=== PATIENT | female | born 1950 | race Caucasian/White ===

== ENCOUNTER → 2017-02-08 | Outpatient (CLI) | payer OTHER ==
[~2017-02-08] MED LIST: ASPIRIN ADULT L81 M2 PO; ATORVASTATIN CA80 M1 PO; CLOPIDOGREL75 MG PO; GABAPENTIN400 MG PO; HUMALOG100 U/ML SC; HYDROXYZINE HCL25 M1 PO; INSULIN SYRING1 EAC1 MC; LEVEMIR FLEX100 U/ML SC; LEVEMIR10 ML SC; LISINOPRIL10 M1 PO; METFORMIN500 MG PO; METOPROLOL SUCC25 M2 PO; NEURONTIN300 MG PO; TEST STRIPS1 EACH MC; Vit. B650 MG PO; [UNRECOGNIZED DRUG - SUPPLY] MC
[2017-02-08 12:25] LABS: BASO % 0.4 % (0.0-1.0); EOS # 0.1 10*3/uL (0.0-0.4); EOS % 0.7 % (1.0-4.0); HEMATOCRIT 40.9 % (37.0-47.0); LYMPH # 2.5 10*3/uL (1.3-4.4); LYMPH % 36.5 % (27.0-41.0); MEAN CELL VOLUME 90.1 fl (81.0-99.0); MEAN CORPUSCULAR HGB 30.8 pg (27.0-31.0); MEAN CORPUSCULAR HGB CONC 34.2 g/dl (33.0-37.0); MEAN PLATELET VOLUME 10.8 fl (9.6-12.3); MONO # 0.4 10*3/uL (0.1-1.0); MONO % 5.5 % (3.0-9.0); NEUT # 3.9 10*3/uL (2.3-7.9); NEUT % 56.5 % (47.0-73.0); PLATELET COUNT AUTOMATED 173 10*3/uL (130-400); RED BLOOD COUNT 4.54 10*6/uL (4.10-5.10); RED CELL DISTRI WIDTH 12.6 % (0-14.5); WHITE BLOOD COUNT 6.9 10*3/uL (4.8-10.8)
[2017-02-08 12:42] LABS: ALBUMIN 3.5 gm/dl (3.1-4.5); BUN 11 mg/dl (7-24); CARBON DIOXIDE 26 mmol/L (21-32); CHLORIDE 100 mmol/L (98-107); CHOLESTEROL 195 mg/dL (<200); EST GLOM FILT AFRICAN AMERICAN > 60 ml/min; GLUCOSE 264 mg/dL (65-99); POTASSIUM 4.8 mmol/L (3.5-5.1); SGOT/AST 23 IU/L (3-35); SGPT/ALT 29 U/L (12-78); SODIUM 138 mmol/L (136-145); TRIGLYCERIDES 248 mg/dl (<150); VLDL CHOLESTEROL 50 mg/dL (6-40)
[2017-02-08 12:52] LABS: ALKALINE PHOSPHATASE 113 U/L (45-117); BILIRUBIN, TOTAL 0.5 mg/dl (0.2-1.0); HDL CHOLESTEROL 59 mg/dl (40-60); LDL CHOLESTEROL 86 mg/dL (9-159); TOTAL PROTEIN 7.4 gm/dL (6.4-8.2)
[2017-02-08 13:16] LABS: VITAMIN D, 25-HYDROXY 7.1 ng/mL (30-100)
[2017-02-08 14:32] LABS: HEMOGLOBIN A1c 9.1 % (4.8-5.6)
== END | disposition home or self-care (01) ==
LOC: LAB 11:49
PROVIDERS: Family Medicine
DX: E11.65 Type 2 diabetes mellitus with hyperglycemia (principal); F41.9 Anxiety disorder, unspecified; I10 Essential (primary) hypertension; E55.9 Vitamin D deficiency, unspecified; E11.42 Type 2 diabetes mellitus with diabetic polyneuropathy; R53.82 Chronic fatigue, unspecified; E78.5 Hyperlipidemia, unspecified

== ENCOUNTER → 2017-02-13 | Outpatient (CLI) | payer OTHER | END | disposition home or self-care (01) | LOC: US 12:30 | DX: E11.9 Type 2 diabetes mellitus without complications (principal); I10 Essential (primary) hypertension; I73.9 Peripheral vascular disease, unspecified; R20.0 Anesthesia of skin; I70.202 Unspecified atherosclerosis of native arteries of extremities, left leg ==

== ENCOUNTER → 2017-03-23 | Outpatient (CLI) | payer OTHER | END | disposition home or self-care (01) | LOC: US 02-24 13:00 | DX: I65.23 Occlusion and stenosis of bilateral carotid arteries (principal) ==

== ENCOUNTER → 2017-08-30 | Outpatient (CLI) | payer OTHER ==
[2017-08-30 09:38] LABS: BASO % 0.4 % (0.0-1.0); EOS # 0.1 10*3/uL (0.0-0.4); EOS % 0.6 % (1.0-4.0); HEMOGLOBIN 13.8 g/dl (12.0-16.0); LYMPH # 2.5 10*3/uL (1.3-4.4); LYMPH % 31.2 % (27.0-41.0); MEAN CELL VOLUME 88.4 fl (81.0-99.0); MEAN CORPUSCULAR HGB 29.7 pg (27.0-31.0); MEAN CORPUSCULAR HGB CONC 33.7 g/dl (33.0-37.0); MEAN PLATELET VOLUME 10.5 fl (9.6-12.3); MONO # 0.5 10*3/uL (0.1-1.0); MONO % 6.2 % (3.0-9.0); NEUT # 4.8 10*3/uL (2.3-7.9); NEUT % 61.1 % (47.0-73.0); PLATELET COUNT AUTOMATED 175 10*3/uL (130-400); RED BLOOD COUNT 4.64 10*6/uL (4.10-5.10); RED CELL DISTRI WIDTH 12.3 % (0-14.5); WHITE BLOOD COUNT 7.9 10*3/uL (4.8-10.8)
[2017-08-30 09:48] LABS: ALBUMIN 3.4 gm/dl (3.1-4.5); ALKALINE PHOSPHATASE 122 U/L (45-117); BUN 10 mg/dl (7-24); CHLORIDE 98 mmol/L (98-107); CREATININE 0.81 mg/dL (0.55-1.02); POTASSIUM 4.6 mmol/L (3.5-5.1); SGOT/AST 24 IU/L (3-35); SGPT/ALT 28 U/L (12-78); SODIUM 134 mmol/L (136-145); TOTAL PROTEIN 7.9 gm/dL (6.4-8.2)
== END | disposition home or self-care (01) ==
LOC: LAB 03:56 → MRI 09:00 → LAB 09:00 → MRI 10:00
PROVIDERS: Internal Medicine Cardiovascular Disease
DX: I67.82 Cerebral ischemia (principal); I25.10 Atherosclerotic heart disease of native coronary artery without angina pectoris; G45.3 Amaurosis fugax; R29.898 Other symptoms and signs involving the musculoskeletal system; R73.09 Other abnormal glucose

== ENCOUNTER 2018-02-13 18:03 | Inpatient (IN) | payer OTHER ==
[~2018-02-13] VITALS: Ht 157.4 cm; Wt 76.2 kg
--- NOTE | ~2018-02-13 | CON ---
[place], [place] REPORT OF CONSULTATION NAME: AGNIESZKA JERRY UNIT #: [id number] ROOM: 507 DOCTOR: JESSICA CORRALES MD BIRTHDATE: [birth year] DOS: 02/16/2018 PSYCHIATRIC CONSULTATION NOTE CHIEF COMPLAINT: "Yeah, I guess I have been depressed for some time." HISTORY OF PRESENT ILLNESS: This is a 67-year-old white female admitted to the medical floor at [facility] due to generalized weakness. The patient recently had a carotid enterectomy done at [facility] on 02/07/2018. Since that time, the patient has been reportedly feeling very tired and weak and lethargic. From a psychiatric standpoint, the patient does endorse significant depressive symptomatology. She reports that she has battled depression on and off throughout her life. Most recently, she notes that the symptoms of depression have worsened in the last 4 to 6 weeks, some of this is because she fears that she is going to have a stroke or have a heart attack. She endorses significant neurovegetative symptoms that include poor sleep with difficulty falling asleep, sleep continuity disturbance, aircraft engine mechanic awakening, anergia, anhedonia, hopeless, helpless feelings, crying spells, inability to cope. Her appetite until just recently has been very poor as well. She reports that her current antidepressant is ineffective at combating these symptoms and is open to having a change in her medication. She does not endorse any suicidal thoughts, homicidal thoughts or any self-injurious thoughts and in fact is looking forward to returning home to be with her Shobha that is the love of her life. PAST MEDICAL HISTORY: Remarkable for congestive heart failure, Crohn's disease, coronary artery disease, diabetes, history of a myocardial infarction, hypertension, hyperlipidemia and neuropathic pain. MENTAL STATUS: She is alert and oriented to person, place and time. Mood does seem to be depressed with anxious overtones. There is no significant kelsie, hypomania or psychosis. Memory for the most part is fully intact. DIAGNOSIS: Major depression, recurrent. PLAN: I will go ahead and discontinue her Celexa, instead I will start her on Remeron 15 mg at bedtime. She should have outpatient followup post-discharge. JESSICA CORRALES MD CM:CONSTR:REPORT OF CONSULTATION 02/16/18 0945 interface
--- NOTE | ~2018-02-13 | PROC NOTE ---
[place], [place] PROCEDURE NOTE NAME: AGNIESZKA JERRY UNIT #: [id number] ROOM: 507 DOCTOR: AMINTA COX BIRTHDATE: [birth year] DOS: 02/14/2018 MODIFIED BARIUM SWALLOW LOCATION: [facility], room 507, bed 1. ORDERING PHYSICIAN: Cinthia Herrera DO. RADIOLOGIST: Dr. Bah. BACKGROUND INFORMATION: The patient a 67-year-old female who is seen for modified barium swallow. This test was ordered due to dysphagia. The patient was admitted to the hospital with generalized weakness. She reported undergoing a right carotid endarterectomy at [facility] last week and since that time has been increasingly weak, unable to care for herself and with poor intake. The patient did confirm weight loss of about 10 pounds recently. She also reported coughing and choking when swallowing, but stated this has been occurring for the past couple of years. Further medical history includes DM, PA, GERD, stents times 2, Crohn's disease, CAD and CHF. The patient currently receives a regular diet and thin liquids. For today's assessment, she was alert and fatigued, but able to follow commands. The patient was receiving oxygen via nasal cannula. Congested respirations were noted. Oral peripheral examination revealed edentulous status. Lingual and labial skills were within normal limits in terms of strength, range of motion, and coordination. The patient was able to volitionally swallow. Her volitional cough was weak. METHODS AND MATERIALS USED FOR THE EXAM: The patient was positioned in the lateral plane and the exam was viewed under fluoroscopy. The patient was presented with a variety of consistencies to assess swallowing skills including applesauce mixed with barium presented in half teaspoon amounts, barium-coated pears and cookie given in bite size pieces and liquids, which included thin liquid barium, nectar thick barium and honey-thick barium. Liquids were presented by cup. The patient was observed in neutral head position and in a chin tuck maneuver. The patient was given the cup and instructed to swallow in her normal sip size amount which was noted to be large sips. ORAL PHASE: The patient achieved adequate labial seal around cup and spoon with no anterior loss. Bolus formation and transit were adequate. Piecemeal swallow of solid consistencies was observed. Tongue to palate contact was within normal limits. Tongue retraction was within normal limits. Velar functioning was within normal limits with no nasal regurgitation. PHARYNGEAL PHASE: The pharyngeal swallow occurred within a timely manner. Laryngeal elevation and epiglottic function were reduced. Deep penetration occurred with thin liquid, nectar thick barium and honey-thick barium. There was no residue in the pharynx post-swallow. The patient was cued to use chin tuck with thin and thick liquids, continued penetration was observed. When patient was cued to take a small sip of honey-thick barium and tuck her chin, there was no penetration occurring. No aspiration occurred with any consistency given; however, the patient is at high risk. [place], [place] PROCEDURE NOTE NAME: AGNIESZKA JERRY UNIT #: [id number] ROOM: 7 DOCTOR: AMINTA COX BIRTHDATE: [birth year] ESOPHAGEAL PHASE: This phase of the swallow was not formally assessed during this exam. IMPRESSIONS AND RECOMMENDATIONS: Based upon assessment result, this 67-year-old female presents with a mild oral and moderate pharyngeal dysphagia. Piecemeal swallow was noted with soft solids. Deep penetration occurred with liquids due to reduced laryngeal elevation and epiglottic function. No aspiration was displayed with any consistency, but patient displays a high risk. There was no penetration when patient consumed honey thick liquid in small sip using chin tuck maneuver. It is recommended that patient receive a soft diet and honey-thick liquids. Recommend small bites and sips, eating slowly and chin tuck with liquids. Followup therapy is recommended focusing on strengthening exercises adherence to strategies and education. Results and recommendations were shared with the patient and her nurse and they verbalized understanding. Thank you very much for this referral. Should you have any questions regarding this patient, please contact the speech pathologist at [phone]. AMINTA COX CM:PROCNOTE:PROCEDURE NOTE [id number] AMINTA COX
[2018-02-13 18:21] VITALS: BP 72/34
[2018-02-13 19:30] VITALS: BP 108/41
[2018-02-13 19:47] VITALS: BP 114/32
[2018-02-13 20:13] LABS: ACT PARTIAL THROMBO TIME 21.8 SECONDS (20.8-31.5); INTERNATIONAL NORM RATIO 1.1 (2.0-3.5)
[2018-02-13 20:17] LABS: ALBUMIN 2.5 gm/dl (3.1-4.5); ALKALINE PHOSPHATASE 90 U/L (45-117); BUN 20 mg/dl (7-24); CHLORIDE 104 mmol/L (98-107); CREATININE 0.83 mg/dL (0.55-1.02); LIPASE 138 U/L (73-393); SGOT/AST 27 IU/L (3-35); SGPT/ALT 18 U/L (12-78); SODIUM 136 mmol/L (136-145); TOTAL PROTEIN 6.3 gm/dL (6.4-8.2)
[2018-02-13 20:18] LABS: TROPONIN I < 0.015 ng/ml (<0.045)
[2018-02-13 21:30] VITALS: BP 107/53
[2018-02-13 21:34] LABS: BASO % 0.2 % (0.0-1.0); EOS # 0.1 10*3/uL (0.0-0.4); HEMATOCRIT 36.7 % (37.0-47.0); HEMOGLOBIN 12.3 g/dl (12.0-16.0); LYMPH # 2.8 10*3/uL (1.3-4.4); LYMPH % 27.2 % (27.0-41.0); MEAN CELL VOLUME 90.2 fl (81.0-99.0); MEAN CORPUSCULAR HGB 30.2 pg (27.0-31.0); MEAN CORPUSCULAR HGB CONC 33.5 g/dl (33.0-37.0); MEAN PLATELET VOLUME 9.7 fl (9.6-12.3); MONO # 1.1 10*3/uL (0.1-1.0); MONO % 10.9 % (3.0-9.0); NEUT # 6.3 10*3/uL (2.3-7.9); NEUT % 59.7 % (47.0-73.0); PLATELET COUNT AUTOMATED 162 10*3/uL (130-400); RED BLOOD COUNT 4.07 10*6/uL (4.10-5.10); RED CELL DISTRI WIDTH 12.6 % (0-14.5); WHITE BLOOD COUNT 10.5 10*3/uL (4.8-10.8)
[2018-02-13 23:30] VITALS: BP 127/46
[2018-02-14] VITALS: BP 127/46
[2018-02-14 03:43] LABS: BILIRUBIN NEGATIVE (NEGATIVE); BLOOD NEGATIVE (NEGATIVE); CLARITY CLEAR (CLEAR); COLOR YELLOW (YELLOW); GLUCOSE NEGATIVE (NEGATIVE); KETONE NEGATIVE (NEGATIVE); LEUKO ESTERASE TRACE (NEGATIVE); NITRITE NEGATIVE (NEGATIVE); PH 5.5 (5.0-9.0); SPECIFIC GRAVITY 1.025 (1.005-1.030); UROBILINOGEN 0.2 E.U./dl (0.2-1.0)
[2018-02-14 03:50] LABS: BACTERIA TRACE
[2018-02-14 04:00] VITALS: BP 109/56
[2018-02-14 07:22] LABS: BASO % 0.2 % (0.0-1.0); EOS # 0.1 10*3/uL (0.0-0.4); EOS % 1.1 % (1.0-4.0); HEMATOCRIT 37.8 % (37.0-47.0); HEMOGLOBIN 12.3 g/dl (12.0-16.0); LYMPH # 2.1 10*3/uL (1.3-4.4); LYMPH % 25.2 % (27.0-41.0); MEAN CELL VOLUME 90.9 fl (81.0-99.0); MEAN CORPUSCULAR HGB 29.6 pg (27.0-31.0); MEAN CORPUSCULAR HGB CONC 32.5 g/dl (33.0-37.0); MEAN PLATELET VOLUME 9.9 fl (9.6-12.3); MONO # 0.9 10*3/uL (0.1-1.0); MONO % 10.2 % (3.0-9.0); NEUT # 5.2 10*3/uL (2.3-7.9); NEUT % 62.1 % (47.0-73.0); PLATELET COUNT AUTOMATED 176 10*3/uL (130-400); RED BLOOD COUNT 4.16 10*6/uL (4.10-5.10); RED CELL DISTRI WIDTH 12.5 % (0-14.5); WHITE BLOOD COUNT 8.3 10*3/uL (4.8-10.8)
[2018-02-14 08:00] VITALS: BP 130/47
[2018-02-14 08:50] LABS: BUN 14 mg/dl (7-24); CHLORIDE 102 mmol/L (98-107); CREATININE 0.71 mg/dL (0.55-1.02); SODIUM 136 mmol/L (136-145)
[2018-02-14 08:55] LABS: CHOLESTEROL 82 mg/dL (<200); HDL CHOLESTEROL 39 mg/dl (40-60); LDL CHOLESTEROL 19 mg/dL (9-159); PHOSPHOROUS 2.4 mg/dL (2.5-4.9); TRIGLYCERIDES 118 mg/dl (<150); VLDL CHOLESTEROL 24 mg/dL (6-40)
[2018-02-14 09:05] LABS: VITAMIN D, 25-HYDROXY 15.4 ng/mL (30-100)
[2018-02-14] MEDS ORDERED: CELEXA20 MG PO (11:09)
[2018-02-14] MEDS ORDERED: GOOD NEIGHBOR150 MG PO (11:11)
[2018-02-14] MEDS ORDERED: ZOFRAN4 MG PO (11:11)
[2018-02-14] MEDS ORDERED: JANUVIA100 MG PO (11:12)
[2018-02-14 12:00] VITALS: BP 154/55
[2018-02-14 16:00] VITALS: BP 148/70
[2018-02-14 20:00] VITALS: BP 156/56
[2018-02-15] VITALS: BP 111/89
[2018-02-15 06:32] LABS: BASO % 0.1 % (0.0-1.0); HEMATOCRIT 32.5 % (37.0-47.0); LYMPH # 0.7 10*3/uL (1.3-4.4); LYMPH % 8.6 % (27.0-41.0); MEAN CELL VOLUME 88.8 fl (81.0-99.0); MEAN CORPUSCULAR HGB 30.1 pg (27.0-31.0); MEAN CORPUSCULAR HGB CONC 33.8 g/dl (33.0-37.0); MEAN PLATELET VOLUME 10.1 fl (9.6-12.3); MONO # 0.4 10*3/uL (0.1-1.0); MONO % 4.5 % (3.0-9.0); NEUT # 6.7 10*3/uL (2.3-7.9); PLATELET COUNT AUTOMATED 173 10*3/uL (130-400); RED BLOOD COUNT 3.66 10*6/uL (4.10-5.10); RED CELL DISTRI WIDTH 12.3 % (0-14.5); WHITE BLOOD COUNT 7.9 10*3/uL (4.8-10.8)
[2018-02-15 08:00] VITALS: BP 128/90
[2018-02-15] MEDS ORDERED: NEURONTIN600 MG PO (08:19)
[2018-02-15 12:00] VITALS: BP 138/46
[2018-02-15 16:00] VITALS: BP 133/50
[2018-02-15 20:00] VITALS: BP 139/52
[2018-02-16] VITALS: BP 135/43
[2018-02-16 08:00] VITALS: BP 146/61
[2018-02-16 12:00] VITALS: BP 157/64
[2018-02-16] MEDS ORDERED: VITAMIN D5000 UNI1 PO (13:37)
[2018-02-16] MEDS ORDERED: MIRTAZAPINE15 M2 PO (13:37)
== END 2018-02-16 14:40 | disposition home or self-care (01) | DRG 177 ==
LOC: ED 18:03 → EDHOLD 22:11 → 5E 22:11
PROVIDERS: Internal Medicine; Internal Medicine Nephrology; Nurse Practitioner Family
PROC: BD11YZZ Fluoroscopy of Esophagus using Other Contrast (ICD-10-PCS; principal; 2018-02-14)
DX: J69.0 Pneumonitis due to inhalation of food and vomit (principal); E43 Unspecified severe protein-calorie malnutrition; I95.9 Hypotension, unspecified; E11.42 Type 2 diabetes mellitus with diabetic polyneuropathy; I11.0 Hypertensive heart disease with heart failure; I50.42 Chronic combined systolic (congestive) and diastolic (congestive) heart failure; E83.42 Hypomagnesemia; E83.39 Other disorders of phosphorus metabolism; K50.119 Crohn's disease of large intestine with unspecified complications; F33.9 Major depressive disorder, recurrent, unspecified; J98.11 Atelectasis; Z68.29 Body mass index [BMI] 29.0-29.9, adult; M79.2 Neuralgia and neuritis, unspecified; E78.5 Hyperlipidemia, unspecified; I25.10 Atherosclerotic heart disease of native coronary artery without angina pectoris; R13.12 Dysphagia, oropharyngeal phase; Z71.6 Tobacco abuse counseling; Z72.0 Tobacco use; Z79.4 Long term (current) use of insulin; I25.2 Old myocardial infarction; Z95.5 Presence of coronary angioplasty implant and graft; Z90.710 Acquired absence of both cervix and uterus; Z79.899 Other long term (current) drug therapy; Z83.3 Family history of diabetes mellitus; Z83.79 Family history of other diseases of the digestive system; Z79.82 Long term (current) use of aspirin; Z82.49 Family history of ischemic heart disease and other diseases of the circulatory system; Z80.9 Family history of malignant neoplasm, unspecified; Z87.440 Personal history of urinary (tract) infections

== ENCOUNTER → 2018-07-31 | Outpatient (CLI) | payer OTHER ==
[~2018-07-31] MED LIST changes: +CELEXA20 MG PO; +CIPRO500 MG PO; +FUROSEMIDE20 M1 PO; +GLUCOPHAGE1000 MG PO; +GOOD NEIGHBOR150 MG PO; -HYDROXYZINE HCL25 M1 PO; +HYDROXYZINE HCL25 MG PO; +JANUVIA100 MG PO; +MIRTAZAPINE15 M2 PO; +NEURONTIN600 MG PO; +PROTONIX40 M1 PO; +VITAMIN D5000 UNI1 PO; +ZOFRAN4 MG PO
== END | disposition home or self-care (01) ==
LOC: RAD 13:48
DX: J45.909 Unspecified asthma, uncomplicated (principal); I10 Essential (primary) hypertension; I25.10 Atherosclerotic heart disease of native coronary artery without angina pectoris; E11.9 Type 2 diabetes mellitus without complications; I25.2 Old myocardial infarction; F17.200 Nicotine dependence, unspecified, uncomplicated

== ENCOUNTER 2018-09-03 18:18 | Inpatient (IN) | payer OTHER ==
[~2018-09-03] VITALS: Ht 157.5 cm; Wt 81.8 kg
--- NOTE | ~2018-09-03 | EKG ---
[place], [place] ELECTROCARDIOGRAM REPORT NAME: AGNIESZKA JERRY UNIT #: [id number] ROOM: 404 DOCTOR: EPIPHANY DRAFT REPORT BIRTHDATE: [birth year] [facility] Test Date: 2018-09-03 Test Time: 19:46:42 Pat Name: AGNIESZKA JERRY Department: ER Room: 404 Gender: F Process Operator: Bozena Gruber : 1950 Requested By: VIVIAN STEPHEN Order Number: [id number] Reading MD: Isauro Lo MD Measurements Intervals [place] Rate: 80 P: 28 ME: 176 QRS: 16 QRSD: 102 T: 163 QT: 404 QTc: 466 Interpretive Statements Sinus rhythm Nonspecific repol abnormality, lateral leads Poor precordial R-wave progression Electronically Signed On 09-06-2018 16:33:22 PST by Isauro Lo MD CM:EKGRPT:ELECTROCARDIOGRAM REPORT [id number] VIVIAN STEPHEN EPIPHANY DRAFT REPORT VIVIAN STEPHEN
[~2018-09-03 18:18] MED LIST changes: -CIPRO500 MG PO; -FUROSEMIDE20 M1 PO; -GLUCOPHAGE1000 MG PO; -PROTONIX40 M1 PO
[2018-09-03 18:20] VITALS: BP 94/36
[2018-09-03 19:09] VITALS: BP 92/44
[2018-09-03 19:53] LABS: BILIRUBIN NEGATIVE (NEGATIVE); BLOOD NEGATIVE (NEGATIVE); CLARITY SL CLOUDY (CLEAR); COLOR YELLOW (YELLOW); GLUCOSE NEGATIVE (NEGATIVE); KETONE TRACE (NEGATIVE); LEUKO ESTERASE TRACE (NEGATIVE); NITRITE NEGATIVE (NEGATIVE); PH 5.5 (5.0-9.0); SPECIFIC GRAVITY 1.025 (1.005-1.030); UROBILINOGEN 0.2 E.U./dl (0.2-1.0)
[2018-09-03 20:08] LABS: MUCOUS TRACE
[2018-09-03 20:25] LABS: BASO % 0.2 % (0.0-1.0); EOS # 0.1 10*3/uL (0.0-0.4); EOS % 0.8 % (1.0-4.0); HEMATOCRIT 35.2 % (37.0-47.0); HEMOGLOBIN 11.5 g/dl (12.0-16.0); LYMPH # 2.6 10*3/uL (1.3-4.4); LYMPH % 27.7 % (27.0-41.0); MEAN CELL VOLUME 89.8 fl (81.0-99.0); MEAN CORPUSCULAR HGB 29.3 pg (27.0-31.0); MEAN CORPUSCULAR HGB CONC 32.7 g/dl (33.0-37.0); MEAN PLATELET VOLUME 9.9 fl (9.6-12.3); MONO # 0.7 10*3/uL (0.1-1.0); MONO % 7.3 % (3.0-9.0); NEUT % 63.7 % (47.0-73.0); PLATELET COUNT AUTOMATED 190 10*3/uL (130-400); RED BLOOD COUNT 3.92 10*6/uL (4.10-5.10); RED CELL DISTRI WIDTH 14.3 % (0-14.5); WHITE BLOOD COUNT 9.5 10*3/uL (4.8-10.8)
[2018-09-03 20:36] LABS: ACT PARTIAL THROMBO TIME 20.5 SECONDS (20.8-31.5); INTERNATIONAL NORM RATIO 1.1 (2.0-3.5)
[2018-09-03 20:41] LABS: ALBUMIN 3.1 gm/dl (3.1-4.5); ALKALINE PHOSPHATASE 100 U/L (45-117); BUN 20 mg/dl (7-24); CHLORIDE 102 mmol/L (98-107); CREATININE 2.32 mg/dL (0.55-1.02); LIPASE 183 U/L (73-393); SGOT/AST 26 IU/L (3-35); SGPT/ALT 23 U/L (12-78); SODIUM 138 mmol/L (136-145); TOTAL PROTEIN 7.3 gm/dL (6.4-8.2)
[2018-09-03 20:42] LABS: TROPONIN I < 0.015 ng/ml (<0.045)
[2018-09-03 21:14] VITALS: BP 102/33
[2018-09-03 23:19] VITALS: BP 106/30
[2018-09-04 00:13] VITALS: BP 123/42
[2018-09-04 00:30] VITALS: BP 130/50
[2018-09-04] MEDS ORDERED: GLUCOPHAGE1000 MG PO (00:42)
[2018-09-04] MEDS ORDERED: MIRTAZAPINE15 M2 PO (00:43)
[2018-09-04] MEDS ORDERED: FUROSEMIDE20 M1 PO (00:47)
[2018-09-04] MEDS ORDERED: PROTONIX40 M1 PO (00:48)
[2018-09-04] MEDS ORDERED: JANUVIA100 MG PO (00:48)
[2018-09-04 03:43] LABS: BASO % 0.2 % (0.0-1.0); EOS # 0.2 10*3/uL (0.0-0.4); EOS % 1.9 % (1.0-4.0); HEMATOCRIT 32.8 % (37.0-47.0); HEMOGLOBIN 10.5 g/dl (12.0-16.0); LYMPH # 2.8 10*3/uL (1.3-4.4); LYMPH % 32.2 % (27.0-41.0); MEAN CELL VOLUME 90.9 fl (81.0-99.0); MEAN CORPUSCULAR HGB 29.1 pg (27.0-31.0); MEAN PLATELET VOLUME 9.9 fl (9.6-12.3); MONO # 0.8 10*3/uL (0.1-1.0); MONO % 9.6 % (3.0-9.0); NEUT # 4.8 10*3/uL (2.3-7.9); NEUT % 55.9 % (47.0-73.0); PLATELET COUNT AUTOMATED 177 10*3/uL (130-400); RED BLOOD COUNT 3.61 10*6/uL (4.10-5.10); RED CELL DISTRI WIDTH 14.2 % (0-14.5); WHITE BLOOD COUNT 8.6 10*3/uL (4.8-10.8)
[2018-09-04 03:54] LABS: CREATININE 2.19 mg/dL (0.55-1.02); POTASSIUM 3.5 mmol/L (3.5-5.1)
[2018-09-04 03:55] LABS: PHOSPHOROUS 3.8 mg/dL (2.5-4.9)
[2018-09-04 08:00] VITALS: BP 104/58
[2018-09-04 12:00] VITALS: BP 126/42
[2018-09-04 16:00] VITALS: BP 118/68
[2018-09-04 20:00] VITALS: BP 126/73
[2018-09-05] VITALS: BP 122/53
[2018-09-05 06:45] LABS: BASO % 0.2 % (0.0-1.0); EOS # 0.1 10*3/uL (0.0-0.4); EOS % 1.7 % (1.0-4.0); HEMATOCRIT 30.5 % (37.0-47.0); HEMOGLOBIN 9.9 g/dl (12.0-16.0); LYMPH # 2.3 10*3/uL (1.3-4.4); LYMPH % 38.2 % (27.0-41.0); MEAN CELL VOLUME 89.2 fl (81.0-99.0); MEAN CORPUSCULAR HGB 28.9 pg (27.0-31.0); MEAN CORPUSCULAR HGB CONC 32.5 g/dl (33.0-37.0); MONO # 0.6 10*3/uL (0.1-1.0); MONO % 10.4 % (3.0-9.0); NEUT % 49.2 % (47.0-73.0); PLATELET COUNT AUTOMATED 150 10*3/uL (130-400); RED BLOOD COUNT 3.42 10*6/uL (4.10-5.10); RED CELL DISTRI WIDTH 13.8 % (0-14.5)
[2018-09-05 07:19] LABS: CHLORIDE 105 mmol/L (98-107); POTASSIUM 3.9 mmol/L (3.5-5.1); SODIUM 139 mmol/L (136-145)
[2018-09-05 07:41] LABS: BUN 19 mg/dl (7-24); CREATININE 1.08 mg/dL (0.55-1.02)
[2018-09-05 08:00] VITALS: BP 122/50
[2018-09-05 12:00] VITALS: BP 151/53
[2018-09-05 16:00] VITALS: BP 160/67
[2018-09-05 20:00] VITALS: BP 137/50
[2018-09-06] VITALS: BP 146/53
[2018-09-06 07:27] LABS: BUN 18 mg/dl (7-24); CHLORIDE 105 mmol/L (98-107); POTASSIUM 4.6 mmol/L (3.5-5.1); SODIUM 137 mmol/L (136-145)
[2018-09-06 08:00] VITALS: BP 135/51
== END 2018-09-06 13:22 | disposition home health service (06) | DRG 683 ==
LOC: ED 18:18 → 4E 23:51 → EDHOLD 23:51 → 4E 09-04 00:14
PROVIDERS: Internal Medicine; Nurse Practitioner Family; Student in an Organized Health Care Education/Training Program
DX: N17.0 Acute kidney failure with tubular necrosis (principal); E87.2 Acidosis; E44.0 Moderate protein-calorie malnutrition; K50.119 Crohn's disease of large intestine with unspecified complications; I50.42 Chronic combined systolic (congestive) and diastolic (congestive) heart failure; N39.0 Urinary tract infection, site not specified; I95.89 Other hypotension; E86.1 Hypovolemia; D64.9 Anemia, unspecified; B37.2 Candidiasis of skin and nail; F32.9 Major depressive disorder, single episode, unspecified; F17.210 Nicotine dependence, cigarettes, uncomplicated; E78.1 Pure hyperglyceridemia; E11.65 Type 2 diabetes mellitus with hyperglycemia; E11.41 Type 2 diabetes mellitus with diabetic mononeuropathy; I11.0 Hypertensive heart disease with heart failure; I25.10 Atherosclerotic heart disease of native coronary artery without angina pectoris; I34.0 Nonrheumatic mitral (valve) insufficiency; E04.1 Nontoxic single thyroid nodule; E66.9 Obesity, unspecified; Z53.29 Procedure and treatment not carried out because of patient's decision for other reasons; I25.2 Old myocardial infarction; Z79.4 Long term (current) use of insulin; Z95.5 Presence of coronary angioplasty implant and graft; Z90.710 Acquired absence of both cervix and uterus; Z83.3 Family history of diabetes mellitus; Z80.8 Family history of malignant neoplasm of other organs or systems; Z71.6 Tobacco abuse counseling; Z87.01 Personal history of pneumonia (recurrent); Z79.82 Long term (current) use of aspirin; Z79.84 Long term (current) use of oral hypoglycemic drugs; Z79.899 Other long term (current) drug therapy; Z68.33 Body mass index [BMI] 33.0-33.9, adult

== ENCOUNTER 2019-04-18 16:29 | Inpatient (IN) | payer OTHER ==
[~2019-04-18] VITALS: Ht 157.5 cm; Wt 88.7 kg
--- NOTE | ~2019-04-18 | EKG ---
[place], [place] ELECTROCARDIOGRAM REPORT NAME: AGNIESZKA JERRY UNIT #: [id number] ROOM: [facility] DOCTOR: HEMAL DRAFT REPORT BIRTHDATE: [birth year] [facility] Test Date: 2019-04-27 Test Time: 00:47:57 Pat Name: AGNIESZKA JERRY Department: Room: [facility] Gender: F Human Resources Specialist: Felix Han : 1950 Requested By: NELSY DOMINGUEZ Order Number: [id number] Reading MD: Sue Cabrera MD Measurements Intervals [place] Rate: 69 P: 35 MO: 188 QRS: 10 QRSD: 112 T: 142 QT: 391 QTc: 419 Interpretive Statements Sinus rhythm Incomplete left bundle branch block LVH with secondary repolarization abnormality Inferior infarct, old Compared to ECG 03/27/2019 05:38:42 Left bundle-branch block now present Atrial fibrillation no longer present Right bundle-branch block no longer present Myocardial infarct finding still present Electronically Signed On 04-28-2019 11:40:56 PDT by Sue Cabrera MD CM:EKGRPT:ELECTROCARDIOGRAM REPORT [id number] NELSY RECIO DRAFT REPORT NELSY DOMINGUEZ
--- NOTE | ~2019-04-18 | EKG ---
[place], [place] ELECTROCARDIOGRAM REPORT NAME: AGNIESZKA JERRY UNIT #: [id number] ROOM: [facility] DOCTOR: HEMAL DRAFT REPORT BIRTHDATE: [birth year] [facility] Test Date: 2019-04-26 Test Time: 23:25:00 Pat Name: AGNIESZKA JERRY Department: Room: [facility] Gender: F Sweatband Flanger: Felix Han : 1950 Requested By: NELSY DOMINGUEZ Order Number: [id number] Reading MD: Sue Cabrera MD Measurements Intervals [place] Rate: 67 P: 35 WI: 188 QRS: 7 QRSD: 108 T: 145 QT: 391 QTc: 413 Interpretive Statements Sinus rhythm Incomplete left bundle branch block LVH with secondary repolarization abnormality Inferior infarct, old Compared to ECG 03/27/2019 05:38:42 Left bundle-branch block now present Atrial fibrillation no longer present Right bundle-branch block no longer present Myocardial infarct finding still present Electronically Signed On 04-28-2019 11:40:53 PDT by Sue Cabrera MD CM:EKGRPT:ELECTROCARDIOGRAM REPORT [id number] NELSY RECIO DRAFT REPORT NELSY DOMINGUEZ
[~2019-04-18 16:29] MED LIST changes: +CIPRO500 MG PO; +FUROSEMIDE20 M1 PO; +GLUCOPHAGE1000 MG PO; +PROTONIX40 M1 PO
[2019-04-18 16:30] VITALS: BP 171/51
--- NOTE | 2019-04-18 16:51 | NUR ---
PATIENT HAS OPEN AREA OF SKIN IN SKIN FOLD OF R THIGH AREA BETWEEN THIGH AND ABDOMEN. PATIENT DENIES WANTING PICTURES AT THIS TIME. EMOTIONAL AT THIS TIME.
--- NOTE | 2019-04-18 16:53 | NUR ---
PATIENT HAS SHORTENING AND EXTERNAL ROTATION TO LEFT LEG. NO SIGNS OF DISCLORATION TO L HIP.
[2019-04-18 17:45] LABS: BASO % 0.1 % (0.0-1.0); EOS # 0.1 10*3/uL (0.0-0.4); EOS % 1.3 % (1.0-4.0); HEMATOCRIT 30.2 % (37.0-47.0); HEMOGLOBIN 9.6 g/dl (12.0-16.0); LYMPH # 2.1 10*3/uL (1.3-4.4); MEAN CELL VOLUME 97.7 fl (81.0-99.0); MEAN CORPUSCULAR HGB 31.1 pg (27.0-31.0); MEAN CORPUSCULAR HGB CONC 31.8 g/dl (33.0-37.0); MEAN PLATELET VOLUME 10.7 fl (9.6-12.3); MONO # 0.7 10*3/uL (0.1-1.0); MONO % 9.8 % (3.0-9.0); NEUT % 58.7 % (47.0-73.0); PLATELET COUNT AUTOMATED 233 10*3/uL (130-400); RED BLOOD COUNT 3.09 10*6/uL (4.10-5.10); RED CELL DISTRI WIDTH 16.3 % (0-14.5); WHITE BLOOD COUNT 6.8 10*3/uL (4.8-10.8)
[2019-04-18 17:59] LABS: ACT PARTIAL THROMBO TIME 25.9 SECONDS (20.0-32.1); INTERNATIONAL NORM RATIO 1.1 (2.0-3.5)
[2019-04-18 18:04] LABS: ALBUMIN 2.7 gm/dl (3.1-4.5); ALKALINE PHOSPHATASE 349 U/L (45-117); BUN 31 mg/dl (7-24); CHLORIDE 100 mmol/L (98-107); CREATININE 0.89 mg/dL (0.55-1.02); LIPASE 155 U/L (73-393); POTASSIUM 4.3 mmol/L (3.5-5.1); SGOT/AST 59 IU/L (3-35); SGPT/ALT 64 U/L (12-78); SODIUM 136 mmol/L (136-145); TOTAL PROTEIN 7.1 gm/dL (6.4-8.2)
[2019-04-18 18:12] LABS: TROPONIN I < 0.015 ng/ml (<0.045)
--- NOTE | 2019-04-18 19:14 | NUR ---
NURSE TO NURSE REPORT GIVEN TO THIS RN.PT AWAITING ROOM ASSIGNMENT AND TRANSFER TO UNIT.
--- NOTE | 2019-04-18 19:59 | NUR ---
THIS RN CALLED TO SPEAK WITH KOBE HOPKINS, NURSE HAS CHANGED TO KOBE DAVIS.
[2019-04-18 20:00] VITALS: BP 161/61
--- NOTE | 2019-04-18 20:00 | NUR ---
CALLED AND SPOKE WITH KOBE DAVIS PT TO FLOOR AT THIS TIME.
[2019-04-18 20:05] VITALS: BP 162/79
--- NOTE | 2019-04-18 20:05 | NUR ---
PATIENT REFUSES PICTURES OF WOUNDS
--- NOTE | 2019-04-18 20:05 | NUR ---
A 68, admitted to 5E, under the services of YUMIKO Ashby DO with a diagnosis of LEFT HIP FX NON-AMB. Chief complaint is PAIN. Patient arrived via bed from ER. Monitor applied. Initial assessment completed. Vital signs taken and recorded. YUMIKO ASHBY DO notified of admission to the unit. Orders received. See assessment for past medical history, medications and allergies. Patient and/or family oriented to unit. Clothing/patient valuable form completed. RYAN STERLING
--- NOTE | 2019-04-18 20:17 | NUR ---
PATIENT MEDICATED WITH MORPHINE FOR L HIP PAIN 08/01. WILL MONITOR
--- NOTE | 2019-04-18 20:30 | NUR ---
AWARE OF CONSULT. STATES THAT NO SURGERY PLANNED AT [facility] TIME UNTIL VERIFIED TO WHAT [facility] PLANS WERE INITIALLY. ASKED FAMILY/PATIENT IF PATIENT HAD FOLLOW-UP PLANS WITH [facility], STATED THEY WERE NOT AWARE AND WAS IMPLIED THAT NO SURGERY WOULD TAKE PLACE D/T DOCTOR STATED THAT FX SEEMED TO BE HEALING ON ITS ON. FAMILY MADE AWARE OF DR. ZAPIEN STATEMENT AND INFORMED SHE WILL SEE TOMORROW
[2019-04-18] MEDS ORDERED: LANTUS SOL100 UNIT/1 SQ (20:49)
[2019-04-18] MEDS ORDERED: HUMALOG100 UNIT/2 SQ (20:50)
[2019-04-18] MEDS ORDERED: ELIQUIS5 M1 PO (21:01)
[2019-04-18] MEDS ORDERED: TYLENOL325 M1 PO (21:01)
[2019-04-18] MEDS ORDERED: LIPITOR80 MG PO (21:02)
[2019-04-18] MEDS ORDERED: CALCI-CHEW500 MG PO (21:03)
[2019-04-18] MEDS ORDERED: DICLOFENAC SOD100 G1 T (21:04)
[2019-04-18] MEDS ORDERED: ARNUITY ELLIP100 MCG INH (21:05)
[2019-04-18] MEDS ORDERED: FERROUS SULFAT325 MG PO (21:05)
[2019-04-18] MEDS ORDERED: LASIX40 MG PO (21:06)
[2019-04-18] MEDS ORDERED: LISINOPRIL20 MG PO (21:06)
[2019-04-18] MEDS ORDERED: MIRALAX POWDER17 G1 PO (21:07)
[2019-04-18] MEDS ORDERED: SENNA8.6 MG PO (21:08)
[2019-04-18] MEDS ORDERED: COREG12.5 M1 PO (21:09)
--- NOTE | 2019-04-18 21:11 | NUR ---
AWARE THAT HOME MEDS ARE VERIFIED, AND INFORMED THAT TWO SMALL AREAS TO R ABDOMINAL FOLD REGION, NOT FUNGAL LOOKING. STATED OK, AWAITING ORDERS.
--- NOTE | 2019-04-18 21:17 | NUR ---
MORPHINE APPEARS EFFECTIVE. PATIENT IS RESTING IN BED QUIETLY, EYES CLOSED. NO DISTRESS NOTED. CALL LIGHT WITHI NREACH
--- NOTE | 2019-04-18 22:53 | NUR ---
PATIENT MEDICATED WITH NORCO FOR C/O 8/10 L HIP PAIN. WILL MONITOR
[2019-04-19] VITALS: BP 155/79
--- NOTE | 2019-04-19 00:53 | NUR ---
NORCO APPEARS EFFECTIVE. PATIENT RESTING COMFORTBALY IN BED, NO DISTRESS NOTED, EYES CLOSED. CALL LIGHT ENCOURAGED
--- NOTE | 2019-04-19 02:30 | NUR ---
INTACT BLISTER FOUND TO LEFT HEEL, SEROUS FILLED. PER WOUND CARE DOCUMENT STAGE 2. PATIENT DID NOT WANT PICTURES OF AREA.
--- NOTE | 2019-04-19 03:00 | NUR ---
PATIENTS HIP READJUSTED WITH PROPPED WEDGE TO HELP DECREASE EXTERANL ROTATED HIP, ICE IN PLACE, L PEDAL PULSE STILL PRESENT +1. PATIENT HAS DUSKY COLOR TO SELF, RESP ARE ERND ON ROOM AIR. SPO2=97%. BED IS LOCKED IN LOWEST POSITION. CALL LIGHT WITHIN REACH.
--- NOTE | 2019-04-19 05:59 | NUR ---
CLARITZAAGNIESZKA Jayden [id number] Please refer to the physician's history and physical for past medical history, comorbid conditions, and allergies. Diagnosis: INABILITY TO AMBULATE DUE TO HIP FRACURE LEFT HIP Gerald Score: 12,HIGH RISK WOUND DESCRIPTIONS: Wound Number: 1 Location of the wound: Right proximal abdominal fold Thickness: Partial Size: 0.5cm x 0.1cm x 0.1cm Tunneling: none Undermining: none Sinus Tract: none Presence of Exudate: Serous Amount: Light Color: Red Odor: None Periwound Skin Appearance: Normal Wound edges: approximated Pain (associated with wound): none at time of assessment How does patient state this happened? pt unable to state how this happened Wound Number: 2 Location of the wound: Right distal abdominal fold Thickness: Partial Size: 0.7cm x 0.1cm x 0.1cm Tunneling: none Undermining: none Sinus Tract: none Presence of Exudate: Serous Amount: Light Color: Red Odor: None Periwound Skin Appearance: Normal Wound edges: approximated Pain (associated with wound): none at time of assessment How does patient state this happened? pt unable to state how this happened Wound Number: 3 Location of the wound: left heel Type of wound: stage 2 Thickness: Partial Size: 2.7cm x 3.2cm x <0.1cm Tunneling: none Undermining: none Sinus Tract: none Presence of Exudate: Amount: None Color: Dey Odor: None Periwound Skin Appearance: Normal Wound edges: intact serum filled blister Pain (associated with wound): none at time of assessment How does patient state this happened? pt unable to state how this happened Wound Number: 4 Location of the wound: right lateral ankle Type of wound: stage 1 Thickness: Size: 0.4cm x 0.4cm x <0.1cm Tunneling: none Undermining: none Sinus Tract: none Presence of Exudate: Amount: None Color: Red Odor: None Periwound Skin Appearance: Normal Wound edges: closed Pain (associated with wound): none at time of assessment How does patient state this happened? pt unable to state how this happened Wound Number: 5 Location of the wound: Right medial abdominal fold Thickness: Partial Size: 0.5cm x 0.1cm x 0.1cm Tunneling: none Undermining: none Sinus Tract: none Presence of Exudate: Serous Amount: Light Color: Red Odor: None Periwound Skin Appearance: Normal Wound edges: approximated Pain (associated with wound): none at time of assessment How does patient state this happened? pt unable to state how this happened Surface the patient is resting on: Isoflex SKIN PREVENTION RECOMMENDATION: 1. Pressure redistribution support surface as appropriate 2. Elevate heels 3. Remove boots/TEDS every shift and reapply 4. Head of bed 30 degrees as tolerated 5. Assess nutrition and hydration 6. Manage moisture 7. Avoid the use of containment devices while in bed 8. Use absorptive products on surfaces limit layers of linens on bed 9. Turn and reposition every 1-2 hours in bed and every 1 hour in chair as tolerated 10. Weight shifts every 15 minutes while up in chair 11. Offloading with pillows or device to keep heels elevated off bed 12. Monitor skin at least every shift 13. Inspect under medical devices twice a day WOUND TREATMENT RECOMMENDATIONS: Cleanse right abdominal fold proximal, medial and distal with soap and water and apply nystatin powder every 8 hours. Stage 2 guidelines: Apply sureprep to left heel allow time to dry then cover with optifoam gentle Heel raiser pro boots while in bed. Wheelchair cushion when oob. Stage 1 guidelines: Apply sureprep to right lateral ankle allow time to dry then cover with optifoam gentle.
[2019-04-19 07:00] LABS: BASO % 0.3 % (0.0-1.0); EOS # 0.2 10*3/uL (0.0-0.4); EOS % 2.6 % (1.0-4.0); HEMATOCRIT 32.7 % (37.0-47.0); LYMPH # 2.7 10*3/uL (1.3-4.4); MEAN CELL VOLUME 99.4 fl (81.0-99.0); MEAN CORPUSCULAR HGB 30.4 pg (27.0-31.0); MEAN CORPUSCULAR HGB CONC 30.6 g/dl (33.0-37.0); MEAN PLATELET VOLUME 10.6 fl (9.6-12.3); MONO # 0.6 10*3/uL (0.1-1.0); MONO % 9.9 % (3.0-9.0); NEUT % 45.7 % (47.0-73.0); PLATELET COUNT AUTOMATED 215 10*3/uL (130-400); RED BLOOD COUNT 3.29 10*6/uL (4.10-5.10); RED CELL DISTRI WIDTH 16.5 % (0-14.5); WHITE BLOOD COUNT 6.5 10*3/uL (4.8-10.8)
--- NOTE | 2019-04-19 07:00 | NUR ---
ARRIVED ON FLOOR, INTRODUCED TO PATIENT, BEDSIDE REPORT RECIEVED, WHITE BOARD UPDATED.
--- NOTE | 2019-04-19 07:03 | NUR ---
PHYSICAL THERAPY Nursing screen received. PT orders also received. Thank you. Isabela Garcia,PT
[2019-04-19 07:13] LABS: BUN 31 mg/dl (7-24); CHLORIDE 103 mmol/L (98-107); CREATININE 0.89 mg/dL (0.55-1.02); POTASSIUM 4.4 mmol/L (3.5-5.1); SODIUM 137 mmol/L (136-145)
--- NOTE | 2019-04-19 07:16 | NUR ---
Nursing screen received and Occupational Therapy referral received. OT will await orthopedic consult d/t changes in left hip since initial fracture 03/27/19. Thank you. Bryanna Campbell OTR/l
[2019-04-19 07:18] LABS: FREE T4 1.21 ng/dl (0.76-1.46)
[2019-04-19 08:00] VITALS: BP 140/70
--- NOTE | 2019-04-19 08:10 | NUR ---
PHYSICAL THERAPY PAtient with complicated medical needs. Await Dr. Basilio decision for surgery versus transfer to original facility and acitvty levels permitted if no medical transfer. Thank you for this referral. Isabela Garcia,PT
--- NOTE | 2019-04-19 08:47 | NUR ---
Dr. Lopez notified of wound care recommendations.
--- NOTE | 2019-04-19 09:00 | NUR ---
MEDICATED WITH NORCO FOR LEFT LEG PAIN 10/10, UPDATED WHITE BOARD, WILL REASSESS IN 1 HOUR.
--- NOTE | 2019-04-19 10:00 | NUR ---
PNORCO EFFECTIVE EVIDENCED BY PATIENT RESTINGQUIETLY WITH EYES CLOSED.
--- NOTE | 2019-04-19 10:30 | NUR ---
Business Intelligence Manager in to talk to patient. Patient states lives at H with . There are FEW steps in the home. Physician: Jordan CORDOVA [facility] Home health services: NONE Patient's level of ADLs: MODERATE ASSIST Patient has working utilities: YES DME: WHEEL CHAIR, WALKER Follow-up physician's appointment after d/c: WILL BE MADE BY HOSPITALIST NURSE DIRECTOR ON DISCHARGE Does patient want to access PORTAL?: NO Discharge plan PT STATES SHE WAS RECENTLY DISCHARGE FROM [facility] AND REFUSED TO GO TO A SNF FACILITY. PT NOW STATES SHE NEEDS TO GO SOMEWHERE AND IS UNABLE TO GO BACK HOME AT THIS TIME. PT GIVEN LIST OF FACILITIES AND CHOSE [facility]. INFORMED PUBLIC DEFENDER. WILL CONTINUE TO FOLLOW.. DAHIANA CASPER
--- NOTE | 2019-04-19 11:22 | NUR ---
Patient requested referral to [facility]. Contacted trace and faxed initial referral. Will require PT/OT evals when patient is medically stable enough to participate.
[2019-04-19 12:00] VITALS: BP 90/60
--- NOTE | 2019-04-19 13:00 | NUR ---
NORCO GIVEN FOR LEFT HIP PAIN RATED AT 8/10, WILL REASSESS IN 1 HOUR. WHITE BOARD UPDATED.
--- NOTE | 2019-04-19 13:40 | NUR ---
Nutrition Support Services Note: Pt is a 68 year old female dx with a L hip fx and inability to ambulate. She was triggered dt wound. Recommended Glucerna TID to promote wound healing. She has a hx of uncontrolled DM so I brought her a diet copy to discuss but she stated she wasn't interested because she won't follow it. Jaime Santoro [employer] CPD Student
--- NOTE | 2019-04-19 14:00 | NUR ---
MINIMAL RELIEF FROM NORCO, PATIENT C/O LEFT HIP PAIN 04/01
[2019-04-19 14:57] VITALS: BP 118/50
--- NOTE | 2019-04-19 15:30 | NUR ---
MEDICATED WITH TONY TERRAZAS, WHITE BOARD UPDATED.
[2019-04-19 16:00] VITALS: BP 102/48
--- NOTE | 2019-04-19 18:14 | NUR ---
NORCO GIVEN PER PATIENT REQUEST FOR LEFT HIP PAIN.
[2019-04-19 20:00] VITALS: BP 102/58
[2019-04-20] VITALS: BP 92/60
[2019-04-20 06:18] LABS: BASO % 0.2 % (0.0-1.0); EOS # 0.2 10*3/uL (0.0-0.4); EOS % 2.9 % (1.0-4.0); HEMATOCRIT 28.5 % (37.0-47.0); LYMPH # 2.4 10*3/uL (1.3-4.4); LYMPH % 39.2 % (27.0-41.0); MEAN CELL VOLUME 97.6 fl (81.0-99.0); MEAN CORPUSCULAR HGB 30.8 pg (27.0-31.0); MEAN CORPUSCULAR HGB CONC 31.6 g/dl (33.0-37.0); MEAN PLATELET VOLUME 10.9 fl (9.6-12.3); MONO # 0.7 10*3/uL (0.1-1.0); NEUT # 2.8 10*3/uL (2.3-7.9); NEUT % 45.4 % (47.0-73.0); PLATELET COUNT AUTOMATED 192 10*3/uL (130-400); RED BLOOD COUNT 2.92 10*6/uL (4.10-5.10); WHITE BLOOD COUNT 6.2 10*3/uL (4.8-10.8)
[2019-04-20 08:00] VITALS: BP 126/50
[2019-04-20 12:00] VITALS: BP 142/58
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
[2019-04-20 16:00] VITALS: BP 118/34
--- NOTE | 2019-04-20 17:16 | NUR ---
NORCO 5/325 MG GIVEN FOR C/O PAIN,06/01.
--- NOTE | 2019-04-20 19:45 | NUR ---
24 HR CHART CHECK COMPLETE.
[2019-04-20 20:00] VITALS: BP 117/44
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
[2019-04-21] VITALS: BP 121/36
[2019-04-21 04:00] VITALS: BP 112/44
[2019-04-21 06:07] LABS: BASO % 0.4 % (0.0-1.0); EOS # 0.2 10*3/uL (0.0-0.4); EOS % 3.7 % (1.0-4.0); HEMATOCRIT 28.9 % (37.0-47.0); HEMOGLOBIN 8.9 g/dl (12.0-16.0); LYMPH # 2.2 10*3/uL (1.3-4.4); LYMPH % 38.5 % (27.0-41.0); MEAN CORPUSCULAR HGB 30.5 pg (27.0-31.0); MEAN CORPUSCULAR HGB CONC 30.8 g/dl (33.0-37.0); MEAN PLATELET VOLUME 10.8 fl (9.6-12.3); MONO # 0.6 10*3/uL (0.1-1.0); MONO % 11.4 % (3.0-9.0); NEUT # 2.6 10*3/uL (2.3-7.9); NEUT % 45.6 % (47.0-73.0); PLATELET COUNT AUTOMATED 181 10*3/uL (130-400); RED BLOOD COUNT 2.92 10*6/uL (4.10-5.10); RED CELL DISTRI WIDTH 15.9 % (0-14.5); WHITE BLOOD COUNT 5.6 10*3/uL (4.8-10.8)
[2019-04-21 06:13] LABS: BUN 31 mg/dl (7-24); CHLORIDE 99 mmol/L (98-107); CREATININE 0.89 mg/dL (0.55-1.02); POTASSIUM 4.4 mmol/L (3.5-5.1); SODIUM 135 mmol/L (136-145)
[2019-04-21 08:00] VITALS: BP 108/40
--- NOTE | 2019-04-21 09:51 | NUR ---
PT COM;PLAIN OF HIP PAIN 08/01, NORCO GIVEN. OPTIFOAM APPLIED PER ORDER TO LEFT HEEL AND RIGHT ANKLE. PT STATES NO OTHER NEEDS AT THIS TIME. PT BLOOD PRESSURE 108/40 THIS MORNING, WILL RECHECK BLOOD PRESSURE PRIOR TO ADMINISTERING LISINOPRIL
--- NOTE | 2019-04-21 10:40 | NUR ---
PT STAETS PAIN "A LITTLE BETTER"
[2019-04-21 12:00] VITALS: BP 118/40
--- NOTE | 2019-04-21 12:59 | NUR ---
PT STATES PAIN LEFT HIP /, MORPHINE GIVEN
--- NOTE | 2019-04-21 13:30 | NUR ---
PT RESTING WITH EYES CLOSED, FAMILY AT BEDSIDE
--- NOTE | 2019-04-21 14:32 | NUR ---
PT STATES PAIN IS NOW 10/10 AT THIS TIME, NORCO GIVEN
[2019-04-21 16:00] VITALS: BP 140/48
--- NOTE | 2019-04-21 17:48 | NUR ---
PT COMPLAIN OF PAIN LEFT HIP, 10/10 MORPHINE GIVEN
--- NOTE | 2019-04-21 18:50 | NUR ---
PT ASKED IF MORPHINE EFFECTIVE FOR PAIN, AT THIS TIME PATIENT STATE THAT NO PAIN MEDICATION HAS WORKED. FAMILY IS AT BEDSIDE AND STATES THAT PATIENT HAS BEEN IN AND OUT OF SLEEP. WILL CONTINUE TO MONITOR
[2019-04-21 20:00] VITALS: BP 136/53
--- NOTE | 2019-04-21 21:32 | NUR ---
PATIENT MEDICATED WITH MORPHINE FOR C/O LEFT HIP PAIN 08/01. WILL MONITOR
--- NOTE | 2019-04-21 22:39 | NUR ---
MORPHINE EFFECTIVE FOR PAIN PER PATIENT
[2019-04-22] VITALS: BP 90/42
--- NOTE | 2019-04-22 05:21 | NUR ---
Upon discharge recommend patient to follow up for wound care in outpatient setting continue current wound care orders at discharging facility.
--- NOTE | 2019-04-22 07:48 | NUR ---
PHYSICAL THERAPY Awaiting orthopedic decision. Isabela Garcia,PT
[2019-04-22 08:00] VITALS: BP 108/52
--- NOTE | 2019-04-22 08:29 | NUR ---
Awaiting orthopedic consult before proceeding with OT evaluation. Thank you. Mahesh Campbell OTr/L
--- NOTE | 2019-04-22 09:20 | NUR ---
Patient is unable to go to [facility] as her advantra insurance is a [employer] product and is out of network with [facility]. Contacted [facility] and asked if they would check her benefits for placement in [place]. waiting on benefits check.
[2019-04-22 12:00] VITALS: BP 110/50; BP 110/56
--- NOTE | 2019-04-22 12:46 | NUR ---
patients insurance is in network with [facility] and they have an available bed. Patient will require a precert. Waiting for ortho consult and PT/OT evals if able to participate.
--- NOTE | 2019-04-22 13:55 | NUR ---
DR. BARNES'S OFFICE NOTIFIED OF CONSULT.
--- NOTE | 2019-04-22 15:53 | NUR ---
NORCO GIVEN FOR C/O GENERALIZED DISCOMFORT. WILL MONITOR.
[2019-04-22 16:00] VITALS: BP 97/30
--- NOTE | 2019-04-22 17:07 | NUR ---
APPLE EFFECTIVE PER PT.
--- NOTE | 2019-04-22 17:44 | NUR ---
NOTIFIED DR. SOMERS'S TEAM OF PT'S BP.
[2019-04-22 20:00] VITALS: BP 104/56
[2019-04-23] VITALS: BP 125/40
--- NOTE | 2019-04-23 | NUR ---
RESTING IN BED WITH HOB SLIGHTLY ELEVATED. HEP LOCK LOOSE; NEW HEP LOCK STARTED PER PROTOCOL.
[2019-04-23 04:00] VITALS: BP 140/51
--- NOTE | 2019-04-23 04:05 | NUR ---
MEDICATED WITH MS FOR C/O LEFT LEG PAIN. PT. ALSO HAD A BM AT THIS TIME. REPOSITIONED FOR COMFORT. CALL LIGTH WITHIN REACH.
--- NOTE | 2019-04-23 07:38 | NUR ---
PHYSICAL THERAPY Still awaiting surgical intervention /ortho decision. Isabelademario Garcia,PT
--- NOTE | 2019-04-23 07:39 | NUR ---
Still awaiting orthopedic decision before OT evaluation. THank you. Bryanna Campbell OTR/L
[2019-04-23 08:00] VITALS: BP 120/64; BP 132/46
--- NOTE | 2019-04-23 11:47 | NUR ---
PROGRAM ADMINISTRATOR IN TO TALK TO PT, PRESENT. EXPLAINED TO PT WE ARE WAITING TO SEE IF SHE IS ACCEPTED TO [facility] ON DISCHARGE. PT IS AGREEABLE. WILL CONTINUE TO FOLLOW.
[2019-04-23 12:00] VITALS: BP 123/58
--- NOTE | 2019-04-23 15:30 | NUR ---
MORPHINE GIVEN FOR C/O LT HIP PAIN. WILL MONITOR.
[2019-04-23 16:00] VITALS: BP 144/60
--- NOTE | 2019-04-23 16:30 | NUR ---
MORPHINE EFFECTIVE PER PT.
--- NOTE | 2019-04-23 19:00 | NUR ---
PT AWAKE IN BED DURING BEDSIDE SHIFT REPORT W/FAMILY AT BEDSIDE. BED IN LOW POSITION W/WHEELS LOCKED AND ALARM ON. CALL LIGHT IN REACH.
--- NOTE | 2019-04-23 19:45 | NUR ---
PT MEDICATED W/MORPHINE FOR C/O LT HIP PAIN. PT REFUSING TO BE REPOSITIONED AT THIS TIME.
[2019-04-23 20:00] VITALS: BP 146/54
--- NOTE | 2019-04-23 20:30 | NUR ---
PT STATES THAT MORPHINE HELPED THE PAIN A LITTLE.
--- NOTE | 2019-04-23 21:54 | NUR ---
PT MEDICATED W/NORCO FOR C/O LEFT HIP PAIN. REPOSITIONED FOR COMFORT. CALL LIGHT IN REACH.
--- NOTE | 2019-04-23 22:30 | NUR ---
PT RESTING QUIETLY IN BED AT THIS TIME. PRN NORCO EFFECTIVE.
[2019-04-24] VITALS: BP 153/49
--- NOTE | 2019-04-24 07:57 | NUR ---
PHYSICAL THERAPY Dr. Basilio has dictated no surgery due to cariac situation currently. Will attempt to have Dr Basilio clarify mobility permitted to indicate if any PT appropriate at this time. Isabela Garcia,PT
[2019-04-24 08:00] VITALS: BP 116/52; BP 130/70
--- NOTE | 2019-04-24 08:50 | NUR ---
Face to face conversation with Dr. Basilio with Isabela REYNOLDS present. Dr Basilio recommends NWB LLE and informed OT that the patient's fracture is stable and that NWB LLE and mobility will not harm patient. Surgery not able to be performed d/t cardiac precautions. Proceed with OT evalaution and NWB LLE per patients pain tolerance. Bryanna Campbell OTR/L
--- NOTE | 2019-04-24 08:50 | NUR ---
PHYSICAL THERAPY Hard face to face conversarion with Dr. Basilio. Tran Campbell, OTR present. Discussed patient case. Dr. Basilio- she reports ok to proceed with PT, NWB LLE. Proceed with bed mobilty, transfers and mobility with NWB LLE precatuions, fracture is stable and mobility will not cause harm. Discussed pain limitations and all parties argree to adhere to pain limitations. Unable to operate at this time due to cardiac and proceed with PT mobility NWB LLE. Thank you for this referal. Isabela Garcia,PT
--- NOTE | 2019-04-24 08:55 | NUR ---
PHYSICAL THERAPY Patient evaluated on discussion [facility] Dr. Basilio, full evaluation to follow. Continue with PT as per plan of care with fall, non operable hip fracture left due to acute cardiac invovlement- NWB LE with pain limitations, ma x(A) x 2 and acute debility precautions. Will require SNF. PAtient is high complexity via chart review, tests and evaluation: 13441. Thank you for this referral. Isabela Garcia,PT
--- NOTE | 2019-04-24 09:15 | NUR ---
Occupational Therapy evaluation completed on 5 with full eval to follow. PRecautions include fall risk;bed alarm, NWB LLE, mobility within pain tolerance, IV UE, wound right foot and left heel, high complexity level 97459 via chart review, testing and evaluation. Recommend OT per pOC and SNF v.s transfer to [facility] for further care of left hip. Thank you . Bryanna Campbell OTR/L
[2019-04-24 12:00] VITALS: BP 134/56
--- NOTE | 2019-04-24 13:56 | NUR ---
Received order for hospice. Patient resides in [place] so [place] [facility] is the only choice. Contacted agency and faxed referral.
[2019-04-24 16:00] VITALS: BP 138/49
--- NOTE | 2019-04-24 19:00 | NUR ---
PT AWAKE IN BED W/FAMILY AT BEDSIDE DURING BEDSIDE SHIFT REPORT. NO S/S OF DISTRESS NOTED. CALL LIGHT IN REACH.
[2019-04-24 20:00] VITALS: BP 133/66
--- NOTE | 2019-04-24 21:43 | NUR ---
PT MEDICATED W/NORCO FOR C/O CHEST DISCOMFORT. HRR AT 75. NO S/S OF DISTRESS NOTED. WILL CONTINUE TO MONITOR.
--- NOTE | 2019-04-24 22:30 | NUR ---
PT RESTING QUIETLY IN BED AT THIS TIME. PRN NORCO EFFECTIVE.
[2019-04-25] VITALS: BP 132/46
--- NOTE | 2019-04-25 06:35 | NUR ---
BLOOD SUGAR 160; COVERAGE GIVEN PER EMAR.
[2019-04-25 08:00] VITALS: BP 130/51
--- NOTE | 2019-04-25 10:10 | NUR ---
PHYSICAL THERAPY Patient seen this am 1;1 for therapy visit and was supine in bed upon therapist arrival. Patient reports 10/10 global pain, however was able to transfer supine to sit EOB MOD A x 1. Patient remains NWB on L LE and tolerated static EOB sit x 8 minutes, CGA x 1. Patient performed several sit to stand transfers, MOD A x 2, use of std walker support and tolerated 75 seconds static stand first trial and 57 seconds second trial. Patient needed v/c to stand tall due to "slouched" upright posture and returned to supine in bed with MAX A x 2. Patient remained in bed with call light, tray table, telephone and bed alarm activated as several family members were present. [facility] arrived too and will continue per POC as tolerated, total treatment time 18 minutes. Randy Troy, DRILLER HELPER
--- NOTE | 2019-04-25 10:33 | NUR ---
OT NOTE Pt was seen this A.M. 1:1 for 18 minute OT session. Upon arrival pt was supine in bed. Pt identified by name and and had complaints of 10/10 hip pain. Pt transferred supine to sit EOB with modA for assist with UB. While sitting EOB challenged pt's dynamic sitting balance while weight shifting, crossing midline, and reaching over all planes. Pt was able to maintain F- sitting balance requiring UE support. Pt was then educated on NWB status of LLE. Multiple sit to stand transfers completed from bed level with modA X 2 and use of w/w for UE support. Challenged pt's static standing tolerance needed for increased I in self care tasks and functional transfers. Pt was able to tolerate aprox 75 seconds and 57 seconds before sitting due to quick onset of fatigue. Throughout stands and transfers pt maintained good NWB staus requiring only one verbal prompt. Pt then transferred back into bed sit to supine with maxA X 2. There she was left with call light in hand, tray table in place, and bed alarm activated for safety. Continue with rec D/C plan to SNF. ALFREDO Carty/Polina
[2019-04-25 12:00] VITALS: BP 140/58
--- NOTE | 2019-04-25 14:00 | NUR ---
new iv started in left arm,22 liana on 2nd attempt using u/s guidance good blood return and flushed without difficulty. pt tolerated well
[2019-04-25 16:00] VITALS: BP 149/51
[2019-04-25 20:00] VITALS: BP 135/48
--- NOTE | 2019-04-25 20:55 | NUR ---
PT MEDICATED W/IMMODIUM FOR FREQUENT DIARRHEA INCONTINENCE EPISODES.
--- NOTE | 2019-04-25 21:06 | NUR ---
PT TEARFUL AT THIS TIME. C/O GENERAL PAIN. MEDICATED W/MORPHINE IVP ORDERED. REPOSITIONED FOR COMFORT.
--- NOTE | 2019-04-25 23:23 | NUR ---
24 HR chart check completed.
[2019-04-26] VITALS: BP 135/51
--- NOTE | 2019-04-26 02:50 | NUR ---
PT C/O HEARTBURN AND NAUSEA. MEDICATED W/IVP ZOFRAN AND MILK OFFERED AND ACCEPTED.
[2019-04-26 07:09] LABS: BASO % 0.4 % (0.0-1.0); EOS # 0.2 10*3/uL (0.0-0.4); EOS % 2.9 % (1.0-4.0); HEMATOCRIT 30.6 % (37.0-47.0); HEMOGLOBIN 9.6 g/dl (12.0-16.0); LYMPH # 2.4 10*3/uL (1.3-4.4); LYMPH % 32.1 % (27.0-41.0); MEAN CORPUSCULAR HGB 31.4 pg (27.0-31.0); MEAN CORPUSCULAR HGB CONC 31.4 g/dl (33.0-37.0); MEAN PLATELET VOLUME 11.1 fl (9.6-12.3); MONO # 0.8 10*3/uL (0.1-1.0); MONO % 10.2 % (3.0-9.0); NEUT # 4.1 10*3/uL (2.3-7.9); NEUT % 53.7 % (47.0-73.0); PLATELET COUNT AUTOMATED 189 10*3/uL (130-400); RED BLOOD COUNT 3.06 10*6/uL (4.10-5.10); RED CELL DISTRI WIDTH 15.5 % (0-14.5); WHITE BLOOD COUNT 7.6 10*3/uL (4.8-10.8)
--- NOTE | 2019-04-26 07:17 | NUR ---
AGNIESZKA JERRY [id number] Please refer to the physician's history and physical for past medical history, comorbid conditions, and allergies. Diagnosis: INABILITY TO AMBULATE DUE TO HIP FRACURE LEFT HIP Gerald Score: 13,MODERATE RISK WOUND DESCRIPTIONS: Wound #1, #2 and #5: Intact skin noted to right abdominal fold. No drainage, odor or erythema noted at time of assessment. Wound Number: 3 Location of the wound: left heel Type of wound: stage 2 Thickness: Partial Size: 2.7cm x 3.2cm x <0.1cm Tunneling: none Undermining: none Sinus Tract: none Presence of Exudate: none Amount: None Color: Dey Odor: None Periwound Skin Appearance: Normal Wound edges: intact serum filled blister Pain (associated with wound): none at time of assessment Wound Number: 4 Location of the wound: right lateral ankle Type of wound: stage 1 Size: 0.4cm x 0.4cm x <0.1cm Tunneling: none Undermining: none Sinus Tract: none Presence of Exudate: none Amount: None Color: Red Odor: None Periwound Skin Appearance: Normal Wound edges: closed Pain (associated with wound): none at time of assessment Surface the patient is resting on: Isoflex SKIN PREVENTION RECOMMENDATION: 1. Pressure redistribution support surface as appropriate 2. Elevate heels 3. Remove boots/TEDS every shift and reapply 4. Head of bed 30 degrees as tolerated 5. Assess nutrition and hydration 6. Manage moisture 7. Avoid the use of containment devices while in bed 8. Use absorptive products on surfaces limit layers of linens on bed 9. Turn and reposition every 1-2 hours in bed and every 1 hour in chair as tolerated 10. Weight shifts every 15 minutes while up in chair 11. Offloading with pillows or device to keep heels elevated off bed 12. Monitor skin at least every shift 13. Inspect under medical devices twice a day WOUND TREATMENT RECOMMENDATIONS: Continue cleanse right abdominal fold proximal, medial and distal with soap and water and apply nystatin powder every 8 hours. Continue Stage 2 guidelines: Apply sureprep to left heel allow time to dry then cover with optifoam gentle Continue heel raiser pro boots while in bed. Continue wheelchair cushion when oob. Continue Stage 1 guidelines: Apply sureprep to right lateral ankle allow time to dry then cover with optifoam gentle.
[2019-04-26 07:26] LABS: BUN 30 mg/dl (7-24); CHLORIDE 100 mmol/L (98-107); POTASSIUM 4.2 mmol/L (3.5-5.1); SODIUM 136 mmol/L (136-145)
[2019-04-26 08:00] VITALS: BP 126/66
[2019-04-26 08:27] VITALS: BP 122/62
--- NOTE | 2019-04-26 10:58 | NUR ---
FAMILY NOW REQUESTING SNF AND DOES NOT WANT HOSPICE. UPDATES FAXED TO [facility]. WILL CONTINUE TO FOLLOW.
--- NOTE | 2019-04-26 10:59 | NUR ---
PT AND REFUSING HOPSICE CARE AT THIS TIME, [facility] NURSE LEFT INFORMATION IF PATIENT CHANGES HER MIND, PATIENT WOULD LIKE TO GO TO REHAB ORIGINALLY PLANNED, PER PT SHE CANNOT GO HOME AT THIS TIME, CASE MANAGEMENT NOTIFIED, NOTIFIED
[2019-04-26 12:00] VITALS: BP 131/55
--- NOTE | 2019-04-26 13:28 | NUR ---
SHANNON REQUESTED POA PAPERS. [place] POA PAPERS PROVIDED TO PT DAUGHTER. ASK WHAT THEY ARE FOR. TOLD HIM. HE STATES I WILL MAKE HER DECISIONS. PAPERS LEFT WITH FAMILY.
--- NOTE | 2019-04-26 13:48 | NUR ---
PT GIVEN PRN MORPHINE PER PRN ORDER FOR PAIN RATED "10" OUT OF 10. PT REFUSED REPOSITIONING AT THIS TIME. STATES "IT DOESN'T HELP"
--- NOTE | 2019-04-26 14:47 | NUR ---
DR. PATTON MADE AWARE OF PT C/O HEARTBURN AND INDIGESTION. DR. PATTON STATES TO GIVE CHEWABLE CALCIUM CARBONATE 500MG X 1 DOSE NOW.
[2019-04-26 16:00] VITALS: BP 148/52
--- NOTE | 2019-04-26 17:10 | NUR ---
DR. PATTON NOTIFIED OF PT'S BSG 412. STATES TO GIVE THE 14 UNITS OF COVERAGE PER SLIDING SCALE
--- NOTE | 2019-04-26 17:54 | NUR ---
PT C/O PAIN TO LEFT HIP RATED "8" OUT OF 10. PRN PERCOCET GIVEN PER PRN ORDER AT THIS TIME
--- NOTE | 2019-04-26 19:49 | NUR ---
MEDICATED WITH PRN MORPHINE FOR C/O PAIN RATED 9/10 ON A 0/10 PAIN SCALE. DAUGHTER AT BEDSIDE. EDUCATED ON IMPORTANCE OF DRINKING DIET SODA INSTEAD OF REGULAR SODE. MOUNTAIN DEW AND SPRITE SITTING ON BEDSIDE TABLE. DAUGHTER AND PATIENT VERBALIZED UNDERSTANDING. PATIENT STATES "I WILL DRINK WHAT I WANT. I DO NOT LIKE DIET. MY SUGAR IS FINE.". BED IN LOWEST POSITION, CALL LIGHT IN REACH
--- NOTE | 2019-04-26 19:58 | NUR ---
PATIENT STATES SHE DOES NOT WANT TO SLEEP TONIGHT. STATES SHE HAS NOT SLEPT IN A FEW DAYS BECAUSE SHE DOES NOT WANT TOO. STATES "NOBODY CARES ABOUT ME". PATIENT EDUCATED ON IMPORTANCE OF GETTING ADEQUATE REST TO HEAL. PATIENT VERY TEARFUL. DAUGHTER AT BEDSIDE AND STATES "MY DAD DOES NOT HELP THIS SITUATION.". BED IN LOWEST POSITION, CALL LIGHT IN REACH
[2019-04-26 20:00] VITALS: BP 145/51
--- NOTE | 2019-04-26 20:05 | NUR ---
DR DOMINGUEZ AWARE OF PATIENT CRYING. MADE AWARE OF ANTIDEPRESSENTS BEING FILLED IN DECEMBER.
--- NOTE | 2019-04-26 20:11 | NUR ---
PATIENT STATES THAT SOME OF HER MEDCATIONS ARE MAIL ORDERED. DR DOMINGUEZ MADE AWARE
[2019-04-26 23:24] LABS: PHOSPHOROUS 3.4 mg/dL (2.5-4.9); TROPONIN I < 0.015 ng/ml (<0.045)
[2019-04-27] VITALS (20 sets, daily range): BP systolic 72–118; BP diastolic 32–66
--- NOTE | 2019-04-27 00:36 | NUR ---
DR DOMINGUEZ CALLED TO FLOOR. PATIENT HARD TO ARROUSE. HYPOTENSIVE. STATES "I JUST DONT FEEL GOOD. BLOOD SUGAR CHECK 173. LUNGS DIMINISHED, PALE SKIN. LOWER EXTREMETIES COLD. WEAK PEDAL PULSES. DR DOMINGUEZ AT BEDSIDE
--- NOTE | 2019-04-27 01:10 | NUR ---
MANUAL BP 92/50. DR DOMINGUEZ STATES TO TURN FLUIDS OFF AT THIS TIME. 500CC OF NORMAL SALINE HAS INFUSED.
[2019-04-27 01:14] LABS: ABG BASE EXCESS -9.9 mmol/L (-2.0-2.0); ABG HCO3 14.8 mmol/l (22-26); ABG O2 SATURATION 35.9 % (95-97); ARTERIAL BLOOD GAS PH 7.341 (7.35-7.45)
[2019-04-27 01:16] LABS: ARTERIAL BLOOD GAS PO2 25.3 mmHg (80-90)
[2019-04-27 01:20] LABS: BASO % 0.4 % (0.0-1.0); EOS # 0.2 10*3/uL (0.0-0.4); EOS % 2.7 % (1.0-4.0); HEMATOCRIT 27.7 % (37.0-47.0); HEMOGLOBIN 8.7 g/dl (12.0-16.0); LYMPH # 2.9 10*3/uL (1.3-4.4); LYMPH % 38.9 % (27.0-41.0); MEAN CELL VOLUME 99.3 fl (81.0-99.0); MEAN CORPUSCULAR HGB 31.2 pg (27.0-31.0); MEAN CORPUSCULAR HGB CONC 31.4 g/dl (33.0-37.0); MEAN PLATELET VOLUME 10.6 fl (9.6-12.3); MONO # 0.9 10*3/uL (0.1-1.0); MONO % 11.5 % (3.0-9.0); NEUT # 3.4 10*3/uL (2.3-7.9); NEUT % 45.8 % (47.0-73.0); PLATELET COUNT AUTOMATED 167 10*3/uL (130-400); RED BLOOD COUNT 2.79 10*6/uL (4.10-5.10); RED CELL DISTRI WIDTH 15.3 % (0-14.5); WHITE BLOOD COUNT 7.5 10*3/uL (4.8-10.8)
--- NOTE | 2019-04-27 01:21 | NUR ---
DR DOMINGUEZ AWARE OF BLOOD GAS RESULTS AND CRITICAL P02
--- NOTE | 2019-04-27 01:32 | NUR ---
DR DOMINGUEZ AWARE OF BLOOD PRESSURE. ORDER TO TURN FLUIDS ON AT 100 AND TRANSFER TO THE ICCU
[2019-04-27 01:40] LABS: ACT PARTIAL THROMBO TIME 26.4 SECONDS (20.0-32.1); ALBUMIN 2.5 gm/dl (3.1-4.5); CREATININE 1.21 mg/dL (0.55-1.02); INTERNATIONAL NORM RATIO 1.1 (2.0-3.5); POTASSIUM 4.7 mmol/L (3.5-5.1); TOTAL PROTEIN 6.7 gm/dL (6.4-8.2)
--- NOTE | 2019-04-27 02:00 | NUR ---
PATIENT TRANSFERRED TO ICCU-9. REPORT GIVEN.BELONGINGS AT BEDSIDE. DAUGHTER MANDO AWARE.
--- NOTE | 2019-04-27 02:47 | NUR ---
PATIENT ARRIVE IN ICCU AFTER BP BECAME LOW. PATIENT'S INITIAL MANUAL UPON ENTRANCE TO ICCU WAS 106/50. REPEAT MANUAL 30 MINUTES LATER 96/52. URINALYSIS COLLECTED FROM PATIENT VIA STRAIGHT CATH DUE TO PATIENT'S INCONTINENCE. PATIENT TOLERATED WELL. NO S/S OF DISTRESS. CALL LIGHT PLACED WITHIN REACH OF PATIENT.
--- NOTE | 2019-04-27 03:18 | NUR ---
CALLED DR DOMINGUEZ TO REPORT THAT THE PATIENT'S BP ON THE RIGHT ARM IS MUCH HIGHER THAN THAT OF THE LEFT ARM. WANTS Q15M BP ON BILATERAL ARMS.
[2019-04-27 03:30] LABS: BILIRUBIN NEGATIVE (NEGATIVE); BLOOD 1+ (NEGATIVE); CLARITY CLOUDY (CLEAR); COLOR YELLOW (YELLOW); GLUCOSE NEGATIVE (NEGATIVE); KETONE NEGATIVE (NEGATIVE); LEUKO ESTERASE 3+ (NEGATIVE); NITRITE NEGATIVE (NEGATIVE); SPECIFIC GRAVITY <= 1.005 (1.005-1.030); UROBILINOGEN 0.2 E.U./dl (0.2-1.0)
[2019-04-27 03:50] LABS: WBC TNTC wbc/hpf (0-5)
--- NOTE | 2019-04-27 05:08 | NUR ---
PATIENT RESTLESS IN HER BED. MOANING AND MUMBLING "OH WOW" ON OCCASION. FLUIDS REDUCED TO [address] DOMINGUEZ. NO S/S OF DISTRESS. WITHIN SIGHT OF NURSING STATION.
--- NOTE | 2019-04-27 05:35 | NUR ---
PLACED NS ORDER FOR 80ML/HR CHANGE. SIGNED OFF DUPLICATE OF OVERRIDDEN BAG.
--- NOTE | 2019-04-27 05:37 | NUR ---
PATIENT RESTING COMFORTABLY IN BED. NO S/S OF DISTRESS. WITHIN SIGHT OF NURSE.
[2019-04-27 06:16] LABS: BASO % 0.3 % (0.0-1.0); EOS # 0.2 10*3/uL (0.0-0.4); EOS % 2.6 % (1.0-4.0); HEMATOCRIT 29.6 % (37.0-47.0); HEMOGLOBIN 9.1 g/dl (12.0-16.0); LYMPH # 2.6 10*3/uL (1.3-4.4); LYMPH % 34.1 % (27.0-41.0); MEAN CORPUSCULAR HGB 30.7 pg (27.0-31.0); MEAN CORPUSCULAR HGB CONC 30.7 g/dl (33.0-37.0); MEAN PLATELET VOLUME 11.1 fl (9.6-12.3); MONO # 0.8 10*3/uL (0.1-1.0); MONO % 10.7 % (3.0-9.0); NEUT % 51.5 % (47.0-73.0); PLATELET COUNT AUTOMATED 171 10*3/uL (130-400); RED BLOOD COUNT 2.96 10*6/uL (4.10-5.10); RED CELL DISTRI WIDTH 15.3 % (0-14.5); WHITE BLOOD COUNT 7.7 10*3/uL (4.8-10.8)
--- NOTE | 2019-04-27 06:33 | NUR ---
HOLDING PATIENT'S GLUCOSE COVERAGE DUE TO PATIENT'S MENTAL STATUS CHANGE AND SUDDEN GLUCOSE DROP FROM 412 AT 2200 TO 182 AT 0600.
[2019-04-27 06:44] LABS: BUN 38 mg/dl (7-24); CHLORIDE 98 mmol/L (98-107); CREATININE 1.09 mg/dL (0.55-1.02); POTASSIUM 4.7 mmol/L (3.5-5.1); SODIUM 136 mmol/L (136-145)
--- NOTE | 2019-04-27 07:23 | NUR ---
24 HR chart check completed.
--- NOTE | 2019-04-27 08:00 | NUR ---
PATIENT CRYING. C/O LEFT HIP PAIN. MEDICATED WITH IV MORPHINE.
--- NOTE | 2019-04-27 08:47 | NUR ---
MARILYN HOSE NOT APPLIED DUE TO WOUNDS.
--- NOTE | 2019-04-27 08:48 | NUR ---
PATIENT ASLEEP. SPO2 87%. O2 2L NASAL CANNULA APPLIED. DR. PATTON IN TO ASSESS PATIENT.
--- NOTE | 2019-04-27 09:00 | NUR ---
PATIENT ASLEEP. NO SIGNS OF PAIN. MORPHINE EFFECTIVE.
--- NOTE | 2019-04-27 12:39 | NUR ---
PATIENT YELLING OUT IN PAIN. C/O PAIN TO LEFT FOOT. MEDICATED WITH PERCOCET ORDERED.
--- NOTE | 2019-04-27 12:49 | NUR ---
[facility] WILL COME TOMORROW AT4PM TO MEET WITH PATIENT AND SPOUSE. NURSING INFORMATION SECURITY ENGINEER NOTIFIED OF ORDER TO TRANSFER PATIENT OUT OF THE ICU.
--- NOTE | 2019-04-27 12:51 | NUR ---
SPOUSE NOTIFIED OF PLAN TO MEET HOSPICE TOMORROW AT 4PM.
--- NOTE | 2019-04-27 13:10 | NUR ---
BLOOD PRESSURE 72/42 DR. PATTON NOTIFIED. NEW ORDERS RECEIVED.
--- NOTE | 2019-04-27 13:39 | NUR ---
PATIENT ASLEEP. NO SIGNS OF PAIN. PERCOCET EFFECTIVE.
--- NOTE | 2019-04-27 14:10 | NUR ---
DR. PATTON UPDATED ON BLOOD PRESSURE OF 84/66 MAP OF 71.
--- NOTE | 2019-04-27 14:54 | NUR ---
PATIENT CRYING. C/O PAIN TO LEFT HIP, LEG AND FOOT. PATIENT REPOSITIONED. ICE APPLIED AND MORPHINE GIVEN ORDERED. WILL MONITOR FOR EFFECTIVENESS.
--- NOTE | 2019-04-27 15:40 | NUR ---
PATIENT LAYING IN BED WITH EYES CLOSED. NO PAIN INDICATORS PRESENT. MORPHINE EFFECTIVE.
--- NOTE | 2019-04-27 17:26 | NUR ---
DR. PATTON UPDATED ON BLOOD PRESSURE. ORDER RECEIVED TO KEEP PATIENT AN ICU PATIENT. NURSING PANEL MACHINE SETTER SANDIE UPDATED.
--- NOTE | 2019-04-27 19:50 | NUR ---
ASSUMED CARE OF PATIENT. PATIENT RESTING COMFORTABLY IN HER BED AT THIS TIME. WITHIN SIGHT OF NURSING STATION. PATIENT'S VITALS ARE STABLE. DAUGHTER AND SON IN LAW AT BEDSIDE. EDUCATED FAMILY ON HOSPICE CARE DUE TO HOSPICE CONSULT, AND ALSO DISCUSSED CODE STATUSES WITH THE PATIENT'S FAMILY MEMBERS IN HOPES THAT THEY WILL DISCUSS WHAT THEY WANT FOR THE PATIENT. PATIENT DISPLAYS NO S/S OF DISTRESS AT THIS TIME. WAKES EASILY WITH MILD AROUSAL, AND RESPIRATIONS ARE EASY. PATIENT IS 98% ON 3LNC. BLOOD PRESSURE IS STABLE AT 103/41.
[2019-04-28] VITALS (10 sets, daily range): BP systolic 102–152; BP diastolic 30–68
--- NOTE | 2019-04-28 02:09 | NUR ---
PATIENT'S BRIEF CHANGED FOR URINE. TOLERATED WELL, REPOSITIONED FOR COMFORT. HEEL PROTECTORS REPLACED ON HEELS. NO S/S OF DISTRESS. CALL LIGHT PLACED IN REACH. WITHIN SIGHT OF NURSING STATION.
--- NOTE | 2019-04-28 04:23 | NUR ---
PATIENT RESTING COMFORTABLY IN HER BED. NO S/S OF DISTRESS. WITHIN SIGHT OF NURSING STATION. VITAL SIGNS STABLE. PATIENT AROUSES WITH STIMULATION. RESP EASY.
[2019-04-28 06:13] LABS: BASO % 0.3 % (0.0-1.0); EOS # 0.1 10*3/uL (0.0-0.4); EOS % 1.1 % (1.0-4.0); HEMATOCRIT 30.3 % (37.0-47.0); HEMOGLOBIN 9.3 g/dl (12.0-16.0); LYMPH # 1.7 10*3/uL (1.3-4.4); LYMPH % 16.8 % (27.0-41.0); MEAN CORPUSCULAR HGB 30.4 pg (27.0-31.0); MEAN CORPUSCULAR HGB CONC 30.7 g/dl (33.0-37.0); MEAN PLATELET VOLUME 11.2 fl (9.6-12.3); MONO % 9.4 % (3.0-9.0); NEUT # 7.3 10*3/uL (2.3-7.9); NEUT % 71.9 % (47.0-73.0); PLATELET COUNT AUTOMATED 169 10*3/uL (130-400); RED BLOOD COUNT 3.06 10*6/uL (4.10-5.10); RED CELL DISTRI WIDTH 15.2 % (0-14.5); WHITE BLOOD COUNT 10.1 10*3/uL (4.8-10.8)
--- NOTE | 2019-04-28 06:14 | NUR ---
PATIENT RECEIVED PERCOCET FOR LEFT HIP PAIN RATED 8/10.
--- NOTE | 2019-04-28 06:17 | NUR ---
MORNING CARE PERFORMED. PATIENT'S BRIEF CHANGED, REPOSITIONED FOR COMFORT. WATER PITCHER REFILLED. NO S/S OF DISTRESS. CALL LIGHT IN REACH. PATIENT IS ALERT AND ORIENTED, STABLE VITALS, RESP EASY.
[2019-04-28 06:24] LABS: BUN 42 mg/dl (7-24); CHLORIDE 104 mmol/L (98-107); CREATININE 0.93 mg/dL (0.55-1.02); POTASSIUM 4.7 mmol/L (3.5-5.1); SODIUM 136 mmol/L (136-145)
--- NOTE | 2019-04-28 11:55 | NUR ---
DELFIN FROM [facility] IN TO SEE PT AND SPOKE WITH . STATED AT THIS TIME IS VERY VAGUE ABOUT THEIR WISHES AND DOES WANT PT TO COME HOME WITH HIM AFTER SHE RECIEVES SKILLED SERVICES. DELFIN STATED THAT PT CAN NOT BE HOSPICE AND SKILLED SERVICES AT THE SAME TIME. DELFIN STATED SHE WILL CALL TOMORROW TO CHECK ON STATUS WITH STRESS ENGINEER.
--- NOTE | 2019-04-28 13:09 | NUR ---
NURSING COMMERCIAL FISHING VESSEL OPERATOR SANDIE NOTIFIED THAT PT HAS BEEN DOWNGRADED TO MONITORED PT.
--- NOTE | 2019-04-28 14:08 | NUR ---
pt requested meication for hip pain. gave po percocet 5mg
--- NOTE | 2019-04-28 20:00 | NUR ---
RESTING IN BED WITH EYES CLOSED; PAIN MEDICATION GIVEN EARLIER APPARENTLY EFFECTIVE.
--- NOTE | 2019-04-28 22:00 | NUR ---
BLOOD SUGAR 263; COVERAGE GIVEN PER EMAR.
[2019-04-29] VITALS (7 sets, daily range): BP systolic 100–144; BP diastolic 40–64
--- NOTE | 2019-04-29 04:00 | NUR ---
RESTING IN BED WITH EYES CLOSED. CALL LIGHT WITHIN REACH.
--- NOTE | 2019-04-29 05:29 | NUR ---
MEDICATED WITH PERCOCET FOR C/O LEFT HIP PAIN. BLOOD SUGAR 181; COVERAGE GIVEN PER EMAR.
--- NOTE | 2019-04-29 06:18 | NUR ---
RESTING IN BED WITH EYES CLOSED. PAIN MEDICATION GIVEN EARLIER APPARENTLY EFFECTIVE. 02 REMAINS INTACT. NO DISTRESS NOTED. CALL LIGHT WITHIN REACH.
--- NOTE | 2019-04-29 07:30 | NUR ---
PHYSICAL THERAPY CO-SIGN I approve of the Phyical Therapy notes written above. STORM GARCIA PT
--- NOTE | 2019-04-29 07:32 | NUR ---
PHYSICAL THERAPY PAtient to ICCU over the weekend for low blood pressure. Will require new PT orders when medically appopriate to proceed with PT. Thank you. Isabela Garcia,PT
--- NOTE | 2019-04-29 08:00 | NUR ---
Patient was transferred to ICCU for low blood pressure then returned to regular floor. She will need an new OT referral for continued services. Bryanna Campbell OTR/L
--- NOTE | 2019-04-29 08:10 | NUR ---
PT AWAKE AND DROWSY. SKIN WARM AND DRY AND PALE. PT DENIES ANY PAIN AT THIS TIME. PT STATES SHE FEELS "VERY SLEEPY" THIS MORNING. WILL CONTINUE TO MONITOR AND ASSESS. CALL LIGHT IN REACH.
--- NOTE | 2019-04-29 08:38 | NUR ---
DR. PENN NOTIFIED OF BP OF 100/40. STATED HE WOULD NOTIFY ROSSANA JEAN.
--- NOTE | 2019-04-29 10:45 | NUR ---
Patient referred to [facility]; precert inititated. Waiting for auth.
--- NOTE | 2019-04-29 11:53 | NUR ---
PT MEDICATED WITH PERCOCET ORDERED. PT STATES THAT PAIN IS 9 OUT OF 10. WILL CONTINUE TO MONITOR AND REASSESS.
--- NOTE | 2019-04-29 13:00 | NUR ---
PERCOCET EFFECTIVE FOR PAIN. PT STATES "MY HIP FEELS MUCH BETTER". WILL MONITOR. CALL LIGHT IN REACH.
--- NOTE | 2019-04-29 14:00 | NUR ---
Occupational Therapy evaluation completed on 4 with full eval to follow. PRecautions include fall risk;bed alarm. NWB LLE, severe LLE pain,+2 max assist for supine to sit, unable to stand, high complexity level 33831 via chart review, testing and evaluation. Recommend OT per pOC and SNF to enable return home with family. Thank you for this referral. Bryanna Bowles OTR/L
--- NOTE | 2019-04-29 14:45 | NUR ---
PHYSICAL THERAPY Patient evaluated on 4, full evaluation to follow. Continue with PT as per plan of care with fall, non operable hip fracture left due to acute cardiac invovlement- NWB LE with pain limitations, max(A) x 2 and acute debility precautions. Will require SNF. PAtient is high complexity via chart review, tests and evaluation: [id number]. Thank you for this referral. Isabela Garcia,PT
--- NOTE | 2019-04-29 16:34 | NUR ---
CALLED ROSSANA JEAN TO CLARIFY LASIX ORDER. IT HAS BEEN HELD FOR 3 DAYS BUT IS NOW ACTIVE AGAIN. INSTRUCTED TO HOLD IT AND SHE IS GOING TO DISCONTINUE THE MEDICATION AND RE-EVALUATE PT NEED TOMORROW.
--- NOTE | 2019-04-29 17:39 | NUR ---
ROSSANA NOTIFIED OF BLOOD PRESSURE OF 110/64. ORDERED TO GIVE ZESTRIL SCHEDULED.
--- NOTE | 2019-04-29 20:00 | NUR ---
MEDICATED WITH TYLENOL FOR C/O PAIN. PT. RATES PAIN A 10/10 BUT IS RESTING COMFORTABLY. NO DISTRESS NOTED. VITAL SIGNS STABLE; SEE FLOW SHEET. WILL CONTINUE TO MONITOR. FAMILY PRESENT IN ROOM. CALL LIGHT WITHIN REACH.
--- NOTE | 2019-04-29 22:00 | NUR ---
BLOOD SUGAR 325; COVERAGE GIVEN PER EMAR.
--- NOTE | 2019-04-29 22:15 | NUR ---
RESTING IN BED WITH EYES CLOSED; MEDICATION GIVEN EARLIER APPARENTLY EFFECTIVE.
[2019-04-30 04:00] VITALS: BP 137/50
--- NOTE | 2019-04-30 04:00 | NUR ---
AROUSES EASILY; BP OBTAINED. PT. VOICES NO C/O AT THIS TIME. CALL LIGHT WITHIN REACH.
--- NOTE | 2019-04-30 05:57 | NUR ---
MEDICATED WITH PERCOCET FOR C/O LEFT HIP/LEG PAIN.
--- NOTE | 2019-04-30 06:00 | NUR ---
BLOOD SUGAR 199; COVERAGE GIVEN PER EMAR.
[2019-04-30] MEDS ORDERED: Percocet 325 MG1 TAB PO (08:10)
[2019-04-30] MEDS ORDERED: LASIX20 MG PO (08:10)
[2019-04-30] MEDS ORDERED: PULMICORT RESP0.5 MG NEB (08:18)
[2019-04-30] MEDS ORDERED: CITALOPRAM20 MG PO (08:18)
[2019-04-30] MEDS ORDERED: Humalog SQ (08:18)
[2019-04-30] MEDS ORDERED: MIRTAZAPINE15 M2 PO (08:18)
[2019-04-30] MEDS ORDERED: CEFUROXIME AXE250 MG PO (08:19)
--- NOTE | 2019-04-30 08:47 | NUR ---
Patient is discharged to [facility]; transportation scheduled with [facility] at noon. NH, nursing/chief passenger ship steward/stewardess notified. Attempted to contact patients but there was no answer and no voicemail. Contacted patients son in law William who stated he will notify patients .
--- NOTE | 2019-04-30 11:08 | NUR ---
CALLED REPORT TO REN LEWIS.
--- NOTE | 2019-04-30 11:33 | NUR ---
DISCHARGE PAPERWORK REVIEWED WITH FAMILY.
[2019-04-30 12:00] VITALS: BP 136/44
--- NOTE | 2019-04-30 12:54 | NUR ---
PHYSICAL THERAPY CO-SIGN I approve of the Phyical Therapy notes written above. STORM GARCIA PT
--- NOTE | 2019-04-30 13:03 | NUR ---
2 MG MORPHINE GIVEN TO PT AT THIS TIME FOR LEFT HIP PAIN CONTROL WHILE BEING TRANSPORTED VIA EMS FROM [facility] TO [facility].
--- NOTE | 2019-04-30 13:27 | NUR ---
Discharge instructions reviewed with patient/family. Patient receptive and verbalizes understanding. Follow-up care arranged. Written instructions given to patient/family. DENILSON CARRENO
== END 2019-04-30 13:27 | disposition other institution (70) | DRG 535 ==
LOC: ED 16:29 → EDHOLD 18:47 → 5E 18:47 → ICCU 04-27 01:38 → 4E 04-28 17:33
PROVIDERS: Family Medicine; Internal Medicine; Nurse Practitioner Family; Student in an Organized Health Care Education/Training Program; ADMIT Internal Medicine
DX: S72.142A Displaced intertrochanteric fracture of left femur, initial encounter for closed fracture (principal); E43 Unspecified severe protein-calorie malnutrition; I21.9 Acute myocardial infarction, unspecified; I50.42 Chronic combined systolic (congestive) and diastolic (congestive) heart failure; N30.00 Acute cystitis without hematuria; K50.90 Crohn's disease, unspecified, without complications; B37.2 Candidiasis of skin and nail; I11.0 Hypertensive heart disease with heart failure; R26.2 Difficulty in walking, not elsewhere classified; R74.0 Nonspecific elevation of levels of transaminase and lactic acid dehydrogenase [LDH]; I25.10 Atherosclerotic heart disease of native coronary artery without angina pectoris; I48.91 Unspecified atrial fibrillation; E78.5 Hyperlipidemia, unspecified; D64.9 Anemia, unspecified; K21.9 Gastro-esophageal reflux disease without esophagitis; I95.9 Hypotension, unspecified; L30.4 Erythema intertrigo; F17.219 Nicotine dependence, cigarettes, with unspecified nicotine-induced disorders; L89.510 Pressure ulcer of right ankle, unstageable; E11.65 Type 2 diabetes mellitus with hyperglycemia; F32.9 Major depressive disorder, single episode, unspecified; E66.09 Other obesity due to excess calories; X58.XXXA Exposure to other specified factors, initial encounter; Y93.89 Activity, other specified; Y92.89 Other specified places as the place of occurrence of the external cause; Y99.8 Other external cause status; Z79.4 Long term (current) use of insulin; I25.2 Old myocardial infarction; Z87.440 Personal history of urinary (tract) infections; Z90.710 Acquired absence of both cervix and uterus; Z95.5 Presence of coronary angioplasty implant and graft; Z83.3 Family history of diabetes mellitus; Z80.8 Family history of malignant neoplasm of other organs or systems; Z83.79 Family history of other diseases of the digestive system; Z86.74 Personal history of sudden cardiac arrest; Z79.82 Long term (current) use of aspirin; Z79.899 Other long term (current) drug therapy; Z71.6 Tobacco abuse counseling; Z68.32 Body mass index [BMI] 32.0-32.9, adult

== ENCOUNTER 2019-06-30 16:43 | Inpatient (IN) | payer OTHER ==
[2019-06-30] VITALS (18 sets, daily range): BP systolic 69–114; BP diastolic 26–53
[~2019-06-30] VITALS: Ht 157.5 cm; Wt 69.7 kg
[~2019-06-30 16:43] MED LIST changes: +ARNUITY ELLIP100 MCG INH; +CALCI-CHEW500 MG PO; +CEFUROXIME AXE250 MG PO; +CITALOPRAM20 MG PO; +COREG12.5 M1 PO; +DICLOFENAC SOD100 G1 T; +ELIQUIS5 M1 PO; +FERROUS SULFAT325 MG PO; +HUMALOG100 UNIT/2 SQ; +Humalog SQ; +LANTUS SOL100 UNIT/1 SQ; +LASIX20 MG PO; +LASIX40 MG PO; +LIPITOR80 MG PO; +LISINOPRIL20 MG PO; +MIRALAX POWDER17 G1 PO; +PULMICORT RESP0.5 MG NEB; +Percocet 325 MG1 TAB PO; +SENNA8.6 MG PO; +TYLENOL325 M1 PO
[2019-06-30 17:09] LABS: BASO % 0.1 % (0.0-1.0); EOS # 0.2 10*3/uL (0.0-0.4); EOS % 0.9 % (1.0-4.0); HEMATOCRIT 23.6 % (37.0-47.0); HEMOGLOBIN 7.1 g/dl (12.0-16.0); LYMPH # 2.9 10*3/uL (1.3-4.4); LYMPH % 13.9 % (27.0-41.0); MEAN CELL VOLUME 103.5 fl (81.0-99.0); MEAN CORPUSCULAR HGB 31.1 pg (27.0-31.0); MEAN CORPUSCULAR HGB CONC 30.1 g/dl (33.0-37.0); MEAN PLATELET VOLUME 10.6 fl (9.6-12.3); MONO # 1.2 10*3/uL (0.1-1.0); MONO % 5.6 % (3.0-9.0); NEUT # 16.6 10*3/uL (2.3-7.9); NEUT % 78.6 % (47.0-73.0); NUCLEATED RED BLOOD CELL 0.1 10*3/uL (0.0-0.0); NUCLEATED RED BLOOD CELL 0.2 % (0.0-0.0); PLATELET COUNT AUTOMATED 308 10*3/uL (130-400); RED BLOOD COUNT 2.28 10*6/uL (4.10-5.10); RED CELL DISTRI WIDTH 15.1 % (0-14.5); WHITE BLOOD COUNT 21.2 10*3/uL (4.8-10.8)
[2019-06-30 17:09] LABS: ABG BASE EXCESS -3.2 mmol/L (-2.0-2.0); ABG HCO3 21.6 mmol/l (22-26); ABG O2 SATURATION 99.4 % (95-97); ARTERIAL BLOOD GAS PCO2 41.4 mmHg (35-45); ARTERIAL BLOOD GAS PH 7.34 (7.35-7.45)
[2019-06-30 17:24] LABS: ACT PARTIAL THROMBO TIME 24.6 SECONDS (20.0-32.1); INTERNATIONAL NORM RATIO 1.1 (2.0-3.5)
--- NOTE | 2019-06-30 17:26 | NUR ---
PULSE DOSE EPI FOR BP 69/26. HR 77.
[2019-06-30 17:28] LABS: ALBUMIN 2.7 gm/dl (3.1-4.5); ALKALINE PHOSPHATASE 142 U/L (45-117); BUN 27 mg/dl (7-24); CHLORIDE 103 mmol/L (98-107); CREATININE 1.44 mg/dL (0.55-1.02); POTASSIUM 4.8 mmol/L (3.5-5.1); SGOT/AST 29 IU/L (3-35); SGPT/ALT 40 U/L (12-78); SODIUM 136 mmol/L (136-145); TOTAL PROTEIN 6.4 gm/dL (6.4-8.2)
[2019-06-30 17:31] LABS: TROPONIN I < 0.015 ng/ml (<0.045)
[2019-06-30 19:28] LABS: BILIRUBIN NEGATIVE (NEGATIVE); BLOOD NEGATIVE (NEGATIVE); CLARITY SL CLOUDY (CLEAR); COLOR YELLOW (YELLOW); GLUCOSE NEGATIVE (NEGATIVE); KETONE TRACE (NEGATIVE); LEUKO ESTERASE NEGATIVE (NEGATIVE); NITRITE NEGATIVE (NEGATIVE); UROBILINOGEN 0.2 E.U./dl (0.2-1.0)
--- NOTE | 2019-06-30 20:40 | NUR ---
PT STATESW SHE DOES HAVE AN IOPEN AREA BETWEEN HER BUTTOCKS BUT SHE REFUSES TO HAVE PICTURES TAKEN CORINNE GARCIA RN.
--- NOTE | 2019-06-30 21:00 | NUR ---
A 68 RUPAL OLD FEMALE admitted to ICCU, under the services of YUMIKO Ashby DO with a diagnosis of CHEST PAIN WITH HIGH RISK FOR CARDIAC ETIOLOGY. Chief complaint is CHEST PAIN AT SOB AT [place]. DENIES NOW.. Patient arrived via stretcher from ER. Monitor applied. Initial assessment completed. Vital signs taken and recorded. YUMIKO ASHBY DO notified of admission to the unit. Orders received. See assessment for past medical history, medications and allergies. Patient and/or family oriented to unit. [facility] ICCU visitation policy reviewed. Clothing/patient valuable form completed. BETTY ORTIZ
[2019-06-30] MEDS ORDERED: BRILINTA90 M1 PO (21:26)
[2019-06-30] MEDS ORDERED: CITALOPRAM HYDR40 MG PO (21:28)
[2019-06-30] MEDS ORDERED: DICLOFENAC SOD100 G1 T (21:29)
[2019-06-30] MEDS ORDERED: FLUTICASONE P15.8 ML INH (21:32)
[2019-06-30] MEDS ORDERED: INSULIN LI100 UNIT/1 SC (21:37)
[2019-06-30] MEDS ORDERED: IMODIUM A-D2 M2 PO (21:39)
[2019-06-30] MEDS ORDERED: SUPER MULTIVIT1 EACH PO (21:42)
[2019-06-30] MEDS ORDERED: MUSCLE RUB CRE113 GM T (21:44)
[2019-06-30] MEDS ORDERED: MAALOX ADVANCE355 M1 PO (21:46)
[2019-06-30] MEDS ORDERED: GABAPENTIN100 M2 PO (21:48)
[2019-06-30] MEDS ORDERED: PERCOCET 5-3251 EACH PO (21:49)
[2019-06-30] MEDS ORDERED: DEXTROMETHORPHAN PO (21:53)
[2019-06-30] MEDS ORDERED: GUAIFENESIN PO (21:53)
[2019-06-30] MEDS ORDERED: VITAMIN A & D113 GM T (21:55)
--- NOTE | 2019-06-30 22:00 | NUR ---
BEEPED WITH CONSULT. PT RESTING IN BED TALKING WITH VISITORS.
--- NOTE | 2019-06-30 22:02 | NUR ---
DR. BARNES ANSWERED - ORDERS RECEIVED. BLOOD DONE. PT TOLERATED WELL. TUBING FLUSHED WITH NSS.
[2019-06-30] MEDS ORDERED: ALBUTEROL2.5 MG/0.5 INH (22:07)
--- NOTE | 2019-06-30 23:25 | NUR ---
MED REC DONE WITH LIST OF MEDS FROM [facility]. PT RESTING IN BED WITH HOB ELEVATED. SIDE RAILS UP X'S 2. CALL LIGHT IN REACH. LIJ MLC INTACT AND R EXTERNAL JUGULAR ANGIO INTACT AND HEP LOCKED. WREN PATENT AND DRAINING CLEAR YELLOW URINE. PULSE OX 100% ON 2L 02 VIA NC.
[2019-07-01] VITALS (15 sets, daily range): BP systolic 101–146; BP diastolic 32–68
--- NOTE | 2019-07-01 00:21 | NUR ---
0000 TYLENOL 2 PO GIVEN FOR C/O'S LEG DISCOMFORT. REPOSITIONED ON RIGHT SIDE PER REQUEST. NO DISTRESS NOTED. PULSE OX 100% ON 2L. NO EVIDENCE OF BLEEDING NOTED.
[2019-07-01 01:21] LABS: BASO % 0.2 % (0.0-1.0); EOS % 0.1 % (1.0-4.0); HEMATOCRIT 22.1 % (37.0-47.0); HEMOGLOBIN 7.1 g/dl (12.0-16.0); LYMPH # 2.8 10*3/uL (1.3-4.4); LYMPH % 13.5 % (27.0-41.0); MEAN CORPUSCULAR HGB CONC 32.1 g/dl (33.0-37.0); MEAN PLATELET VOLUME 10.3 fl (9.6-12.3); MONO # 1.2 10*3/uL (0.1-1.0); MONO % 5.7 % (3.0-9.0); NEUT # 16.7 10*3/uL (2.3-7.9); NEUT % 79.6 % (47.0-73.0); NUCLEATED RED BLOOD CELL 0.1 % (0.0-0.0); RED BLOOD COUNT 2.29 10*6/uL (4.10-5.10); RED CELL DISTRI WIDTH 15.4 % (0-14.5)
[2019-07-01 01:23] LABS: MEAN CELL VOLUME 96.5 fl (81.0-99.0); PLATELET COUNT AUTOMATED 185 10*3/uL (130-400)
--- NOTE | 2019-07-01 02:01 | NUR ---
DR. THURSTON NOTIFIED OF RECENT H AND H RESULTS. ORDERS RECEIVED.
--- NOTE | 2019-07-01 02:43 | NUR ---
EARLIER TYLENOL EFFECTIVE.
--- NOTE | 2019-07-01 02:54 | NUR ---
0250 2ND UNIT OF PRBC'S STARTED AFTER PROPER IDENTIFICATION PER 2 RN'S. SEE INTERVENTION SCREEN.
--- NOTE | 2019-07-01 04:33 | NUR ---
TOLERATING TRANSFUSION WELL. NO DISTRESS NOTED.
--- NOTE | 2019-07-01 05:31 | NUR ---
0530 2ND UNIT OF PRBC'S TRANSFUSED. TOLERATED WELL.
--- NOTE | 2019-07-01 06:04 | NUR ---
RESPOSITIONED. RESTING IN BED WITHOUT C/O'S. [facility] INTACT. WREN PATENT. NO DISTRESS NOTED. MONITOR REMAINS NSR IN THE 60'S. CONDITION GUARDED.
--- NOTE | 2019-07-01 07:21 | NUR ---
NOTIIED OF CONSULT
--- NOTE | 2019-07-01 08:06 | NUR ---
Nursing screen receieved and chart reviewed. Patient admitted for SOB and chest pain with a PMH including diabetes, CHF, CAD, and inoperable L hip fx. If there is a decline in ADLs and functional mobility/transfers, please send OT orders. Thank you. Madhuri Ledesma OTR/L
[2019-07-01 08:18] LABS: BASO % 0.2 % (0.0-1.0); EOS # 0.1 10*3/uL (0.0-0.4); EOS % 0.7 % (1.0-4.0); HEMATOCRIT 26.9 % (37.0-47.0); HEMOGLOBIN 8.8 g/dl (12.0-16.0); LYMPH % 16.8 % (27.0-41.0); MEAN CORPUSCULAR HGB 30.4 pg (27.0-31.0); MEAN CORPUSCULAR HGB CONC 32.7 g/dl (33.0-37.0); MONO # 1.1 10*3/uL (0.1-1.0); NEUT # 13.5 10*3/uL (2.3-7.9); NEUT % 75.7 % (47.0-73.0); NUCLEATED RED BLOOD CELL 0.1 % (0.0-0.0); PLATELET COUNT AUTOMATED 189 10*3/uL (130-400); RED BLOOD COUNT 2.89 10*6/uL (4.10-5.10); RED CELL DISTRI WIDTH 18.3 % (0-14.5); WHITE BLOOD COUNT 17.8 10*3/uL (4.8-10.8)
[2019-07-01 08:34] LABS: ALBUMIN 2.6 gm/dl (3.1-4.5); CREATININE 1.56 mg/dL (0.55-1.02); PHOSPHOROUS 3.3 mg/dL (2.5-4.9); TOTAL PROTEIN 6.1 gm/dL (6.4-8.2)
[2019-07-01 08:53] LABS: MEAN CELL VOLUME 93.1 fl (81.0-99.0)
--- NOTE | 2019-07-01 09:15 | NUR ---
PHYSICAL THERAPY Nursing screen received and chart reviewed. Recommend PT evaluation if decline in functional mobility presents. Thank you. Kirsten Zee,PT,DPT.
--- NOTE | 2019-07-01 09:33 | NUR ---
AGNIESZKA JERRY [id number] Please refer to the physician's history and physical for past medical history, comorbid conditions, and allergies. Diagnosis: CHEST PAIN WITH HIGH RISK FOR CARIDAC ETIOLOGY, Gerald Score: 17,AT RISK WOUND DESCRIPTIONS: Wound Number: 1 Location of the wound: right outer ankle Type of wound: DTI Size: 0.5cm x 0.5cm x <0.1cm Tunneling: none Undermining: none Sinus Tract: none Presence of Exudate: none Amount: None Color: Purple, red Odor: None Periwound Skin Appearance: Normal Wound edges: approximated Pain (associated with wound): none at time of assessment How does patient state this happened? pt unable to state how this happened Wound Number:2 buttocks red and blanchable at time of assessment no open areas noted. No drainage noted at time of assessment. Wound Number: 3 Location of the wound: right dorsal foot Type of wound: DTI Size: 0.3cm x 0.5cm x <0.1cm Tunneling: none Undermining: none Sinus Tract: none Presence of Exudate: none Amount: None Color: Purple, red Odor: None Periwound Skin Appearance: Normal Wound edges: approximated Pain (associated with wound): none at time of assessment How does patient state this happened? pt unable to state how this happened Wound Number: 4 Location of the wound: left dorsal foot Type of wound: unstageable Thickness: Full Size: 0.2cm x 0.4cm x <0.1cm Tunneling: none Undermining: none Sinus Tract: none Presence of Exudate: none Amount: None Color: Black Odor: None Periwound Skin Appearance: Normal Wound edges: approximated Pain (associated with wound): none at time of assessment How does patient state this happened? pt unsure how this happened Wound Number: 5 Location of the wound: left 2nd toe proximal Type of wound: DTI Size: 0.5cm x 0.3cm x <0.1cm Tunneling: none Undermining: none Sinus Tract: none Presence of Exudate: none Amount: None Color: Purple, red Odor: None Periwound Skin Appearance: Normal Wound edges: approximated Pain (associated with wound): none at time of assessment How does patient state this happened? pt unable to state how this happened Wound Number: 6 Location of the wound: left 2nd toe distal Type of wound: DTI Size: 0.3cm x 0.2cm x <0.1cm Tunneling: none Undermining: none Sinus Tract: none Presence of Exudate: none Amount: None Color: Purple, red Odor: None Periwound Skin Appearance: Normal Wound edges: approximated Pain (associated with wound): none at time of assessment How does patient state this happened? pt unable to state how this happened Surface the patient is resting on: Isoflex SKIN PREVENTION RECOMMENDATION: 1. Pressure redistribution support surface as appropriate 2. Elevate heels 3. Remove boots/TEDS every shift and reapply 4. Head of bed 30 degrees as tolerated 5. Assess nutrition and hydration 6. Manage moisture 7. Avoid the use of containment devices while in bed 8. Use absorptive products on surfaces limit layers of linens on bed 9. Turn and reposition every 1-2 hours in bed and every 1 hour in chair as tolerated 10. Weight shifts every 15 minutes while up in chair 11. Offloading with pillows or device to keep heels elevated off bed 12. Monitor skin at least every shift 13. Inspect under medical devices twice a day WOUND TREATMENT RECOMMENDATIONS: Heel raiser pro boots while in bed to bilateral feet. Wheelchair cushion when oob. Cleanse buttocks with soap and water and apply calazime every shift and prn for soiling. Apply sureprep right outer ankle, right dorsal foot, left dorsal foot, left 2nd toe proximal, and left second toe distal and leave open to air. Venous and arterial studies to BLE's due to wounds. Consult podiatry for possible debridement if studies allow.
--- NOTE | 2019-07-01 09:53 | NUR ---
SPOKE WITH DR DORETHA MORGAN POTENTIAL SCOPE TODAY KEEP PT NPO AND HOLD ASA, AWAITING CARDIAC CLEARANCE DR RAINEY UPDATED
--- NOTE | 2019-07-01 10:15 | NUR ---
PERCOCET FOR 10/10 LEFT HIP PAIN
--- NOTE | 2019-07-01 10:30 | NUR ---
Asphalt Raker in to see patient. She is a LTC resident at [facility] and plans to return there upon discharge. She states she gets up with a walker or wheelchair. She states she has aerosols but no O2. When medically stable she will be discharged to [facility]. senior planner following.
--- NOTE | 2019-07-01 10:33 | NUR ---
Dr. Baig notified of wound care recommendations.
--- NOTE | 2019-07-01 11:43 | NUR ---
Patient is currently at [facility] short term care and requires PT/OT and precert to return.
--- NOTE | 2019-07-01 12:15 | NUR ---
MULTIPLE FAMILY MEMBERS IN ROOM, ADVISE OF CDIFF ISOLATION-ALL REFUES TO WEAR ISOLATION PPE
--- NOTE | 2019-07-01 12:38 | NUR ---
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
--- NOTE | 2019-07-01 16:14 | NUR ---
PODIATRY CONSULTED-MESSAGE LEFT ON RESIDENT PHONE FOR "SINDY"
--- NOTE | 2019-07-01 16:30 | NUR ---
BS 77, PT ASYMPT, RESIDENT UPDATED 250CC D10 GIVEN
--- NOTE | 2019-07-01 18:27 | NUR ---
TO OR VIA BED
--- NOTE | 2019-07-01 21:08 | NUR ---
PATIENT OFFERED A BATH, IN WHICH SHE REFUSED.
--- NOTE | 2019-07-01 21:12 | NUR ---
PATIENT TOLERATED SOFT DIET WELL.
--- NOTE | 2019-07-01 21:55 | NUR ---
24 HR chart check completed.
[2019-07-02] VITALS: BP 142/50
[2019-07-02 04:00] VITALS: BP 116/46
[2019-07-02 06:03] LABS: BASO % 0.2 % (0.0-1.0); EOS # 0.2 10*3/uL (0.0-0.4); EOS % 1.5 % (1.0-4.0); HEMATOCRIT 27.4 % (37.0-47.0); HEMOGLOBIN 8.7 g/dl (12.0-16.0); LYMPH # 2.3 10*3/uL (1.3-4.4); LYMPH % 21.5 % (27.0-41.0); MEAN CELL VOLUME 94.5 fl (81.0-99.0); MEAN CORPUSCULAR HGB CONC 31.8 g/dl (33.0-37.0); MEAN PLATELET VOLUME 10.6 fl (9.6-12.3); MONO # 0.8 10*3/uL (0.1-1.0); MONO % 7.1 % (3.0-9.0); NEUT # 7.3 10*3/uL (2.3-7.9); PLATELET COUNT AUTOMATED 188 10*3/uL (130-400); RED CELL DISTRI WIDTH 18.6 % (0-14.5); WHITE BLOOD COUNT 10.5 10*3/uL (4.8-10.8)
[2019-07-02 06:23] LABS: ALBUMIN 2.6 gm/dl (3.1-4.5); CREATININE 1.17 mg/dL (0.55-1.02); PHOSPHOROUS 3.2 mg/dL (2.5-4.9); POTASSIUM 4.5 mmol/L (3.5-5.1); TOTAL PROTEIN 6.4 gm/dL (6.4-8.2)
--- NOTE | 2019-07-02 07:33 | NUR ---
Notified palliative care nurse, Olesya, of palliative care order. Order faxed to [facility].
[2019-07-02 08:00] VITALS: BP 130/61
--- NOTE | 2019-07-02 08:32 | NUR ---
Dr. Baig notified of wound care recommendations.
--- NOTE | 2019-07-02 09:28 | NUR ---
PALLATIVE CARE CONSULTED. TEE JORDAN WILL BE IN TOMORROW TO SEE HER.
--- NOTE | 2019-07-02 10:10 | NUR ---
PHYSICAL THERAPY Physical therapy evaluation completed. Full details and evaluation to follow. High complexity skilled PT evaluation performed ([id number]). PT will work on bed mobility, transfers, gait, balance, strength, and safety per POC. Recommend SNF upon discharge. Thank you, Hina Garvey, SPT Kirsten Zee,PT,DPT
--- NOTE | 2019-07-02 10:10 | NUR ---
Occupational Therapy eval complete in the ICCU with full eval to follow. Precautions include fall risk, isolation precautions, IV UE, bed alarm, ICCU unit, 3L O2 via NC, and high complexity level 67604. Recommend OT per POC and discharge to SNF to enable safe return to max ability to function. Thank you for this referral. Antoni Hoyt S/OT Bryanna Campbell OTR/l
--- NOTE | 2019-07-02 10:30 | NUR ---
Textbook Associate in to see patient. No new needs or request at this time. When medically stable she will be discharged to [facility] where she is a LTC resident. knockout worker following.
[2019-07-02 12:00] VITALS: BP 108/60
--- NOTE | 2019-07-02 14:53 | NUR ---
REPORST RECEIVED FROM ICCU RN. ASSUMED CARE OF PATIENT
[2019-07-02 16:00] VITALS: BP 161/47
[2019-07-02 20:00] VITALS: BP 157/76
--- NOTE | 2019-07-02 20:02 | NUR ---
PT C/O LEG PAIN RATING IT A 9/10 ON THE PAIN SCALE. MEDICATED WITH PERCOCET. WILL REASSESS. WILL MONITOR.
--- NOTE | 2019-07-02 21:00 | NUR ---
PATIENT STATES PAIN MED WAS EFFECTIVE RATING PAIN A 7/10 NOW.
[2019-07-03] VITALS: BP 137/55
--- NOTE | 2019-07-03 04:28 | NUR ---
Patient sleeping. Respirations relaxed and easy. Siderails up 2. Wheellocks on. JUSTYNA DO
--- NOTE | 2019-07-03 05:41 | NUR ---
Upon discharge recommend patient to follow up for wound care in outpatient setting continue current wound care orders at discharging facility.
--- NOTE | 2019-07-03 05:45 | NUR ---
PATIENT REFUSING PICTURES AT THIS TIME.
--- NOTE | 2019-07-03 05:59 | NUR ---
AGNIESZKA JERRY [id number] Please refer to the physician's history and physical for past medical history, comorbid conditions, and allergies. Diagnosis: CHEST PAIN WITH HIGH RISK FOR CARIDAC ETIOLOGY, Gerald Score: 16,AT RISK WOUND DESCRIPTIONS: Wound Number: 7 ( new skin impairment ) Location of the wound: Left groin Type of wound: fungal Thickness: Partial Size: 0.2cm x 1.7cm x 0.1cm Tunneling: none Undermining: none Sinus Tract: none Presence of Exudate: Serous Amount: Light Color: Red Odor: musty Periwound Skin Appearance: Normal Wound edges: approximated Pain (associated with wound): none at time of assessment How does patient state this happened? pt unsure how this happened Wound Number: 8 ( new skin impairment ) Location of the wound: right groin Type of wound: fungal Thickness: Partial Size: 0.1cm x 4.0cm x 0.1cm Tunneling: none Undermining: none Sinus Tract: none Presence of Exudate: Serous Amount: Light Color: Red Odor: Musty Periwound Skin Appearance: Normal Wound edges: approximated Pain (associated with wound): none at time of assessment How does patient state this happened? pt unsure how this happened Surface the patient is resting on: Isoflex SKIN PREVENTION RECOMMENDATION: 1. Pressure redistribution support surface as appropriate 2. Elevate heels 3. Remove boots/TEDS every shift and reapply 4. Head of bed 30 degrees as tolerated 5. Assess nutrition and hydration 6. Manage moisture 7. Avoid the use of containment devices while in bed 8. Use absorptive products on surfaces limit layers of linens on bed 9. Turn and reposition every 1-2 hours in bed and every 1 hour in chair as tolerated 10. Weight shifts every 15 minutes while up in chair 11. Offloading with pillows or device to keep heels elevated off bed 12. Monitor skin at least every shift 13. Inspect under medical devices twice a day WOUND TREATMENT RECOMMENDATIONS: Cleanse left groin and right groin with soap and water and apply nystatin powder every 8 hours.
--- NOTE | 2019-07-03 06:06 | NUR ---
DR. PATTON NOTIFIED OF PATIENTS NEW WOUNDS. AWAITING ORDERS.
[2019-07-03 06:10] LABS: BASO % 0.1 % (0.0-1.0); EOS # 0.2 10*3/uL (0.0-0.4); EOS % 2.4 % (1.0-4.0); HEMATOCRIT 27.7 % (37.0-47.0); HEMOGLOBIN 8.8 g/dl (12.0-16.0); LYMPH # 1.8 10*3/uL (1.3-4.4); LYMPH % 20.3 % (27.0-41.0); MEAN CELL VOLUME 95.2 fl (81.0-99.0); MEAN CORPUSCULAR HGB 30.2 pg (27.0-31.0); MEAN CORPUSCULAR HGB CONC 31.8 g/dl (33.0-37.0); MEAN PLATELET VOLUME 10.3 fl (9.6-12.3); MONO # 0.9 10*3/uL (0.1-1.0); MONO % 9.9 % (3.0-9.0); NEUT # 6.1 10*3/uL (2.3-7.9); NEUT % 66.7 % (47.0-73.0); PLATELET COUNT AUTOMATED 176 10*3/uL (130-400); RED BLOOD COUNT 2.91 10*6/uL (4.10-5.10); RED CELL DISTRI WIDTH 17.2 % (0-14.5); WHITE BLOOD COUNT 9.1 10*3/uL (4.8-10.8)
[2019-07-03 06:24] LABS: BUN 19 mg/dl (7-24); CHLORIDE 106 mmol/L (98-107); CREATININE 0.86 mg/dL (0.55-1.02); POTASSIUM 4.6 mmol/L (3.5-5.1); SODIUM 138 mmol/L (136-145)
--- NOTE | 2019-07-03 07:24 | NUR ---
Clinical updates and therapy all faxed to [facility] for review. 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
--- NOTE | 2019-07-03 08:16 | NUR ---
PHYSICAL THERAPY Nursing screen received and chart reviewed. Patient already on PT caseload. Will continue to progress with PT services. Thank you. Kirsten Zee,PT,DPT.
--- NOTE | 2019-07-03 09:00 | NUR ---
Chief Supply Chain Officer in to see patient. No new needs or request at this time. When medically stable she will be discharged to [facility] where she is a LTC resident. sawmill relief worker following.
[2019-07-03 09:53] LABS: ABG BASE EXCESS 1.8 mmol/L (-2.0-2.0); ABG HCO3 26.4 mmol/l (22-26); ABG O2 SATURATION 97.3 % (95-97); ARTERIAL BLOOD GAS PCO2 43.4 mmHg (35-45); ARTERIAL BLOOD GAS PH 7.398 (7.35-7.45); ARTERIAL BLOOD GAS PO2 89.6 mmHg (80-90)
--- NOTE | 2019-07-03 10:10 | NUR ---
PHYSICAL THERAPY Patient seen this am 1:1 for therapy visit and was supine in bed upon therapist arrival. Patient presented with continuos O2--2.5L via NC and reports no c/o's of pain at this time. Patient is NWB on L LE due to recent FX and transfers supine to sit EOB with MIN/CGA. Patient tolerated static EOB sit x several minutes to collect herself and was instructed on safe sit to stand technique while maintaining NWB status. Patient performed several sit to stand transfers, MIN A, demonstrating slow initial rise and only approx 50% compliant with L LE weight bearing status. Patient also with use of wh walker for standing support, tolerating 37 seconds first attempt and 1 minute 45 seconds second trial. After a brief seated rest, patient performed SPT to BSC, demmonstrating improved upright posture, but had a little difficulty during pivot phase of transfer. Patient returned to supine in bed with increased fatigue noted and remained with call light, tray table, telephone and bed alarm. Will continue per POC as tolerated, total treatment time 16 minutes. Randy Troy, DANDY OPERATOR
--- NOTE | 2019-07-03 10:31 | NUR ---
Dr. Baig notified of wound care recommendations.
--- NOTE | 2019-07-03 10:34 | NUR ---
OT NOTE PATIENT SEEN FOR 25 MINUTE CO-TREAT WITH ALLIGATOR TRAPPER THIS A.M. PATIENT IDENTIFIED BY NAME AND DATE OF . UPON ARRIVAL PATIENT WAS SUPINE IN BED WITH HOB ELEVATED. PATIENT COMPLETED BED MOBILITY WITH MIN A FOR GUIDING OF LE'S. PATIENT STATED 0/10 PAIN AT START OF SESSION. PATIENT ABLE TO COMPLETE SIT TO STANDS, 37 SECONDS FIRST TRIAL AND 1 MINUTE 40 SECONDS SECOND TRIAL USING FWW AND VERBAL CUES TO MAINTAIN NWB STATUS ON LLE. PATIENT COMPLETE STAND PIVOT TRANSFER WITH FWW FROM EOB>BEDSIDE COMMODE WITH VIUSAL DEMO AND VERBAL CUES THROUGHOUT. PATIENT ABLE TO TRANSFER BEDSIDE COMMODE>EOB WITH CGA. PATIENT REQUIRED VERBAL CUES FOR SAFETY AWARENESS SHE DID NOT REACH BACK FOR BED BEFORE SITTING. PATIENT SIT>SUPINE WITH MIN A TO LIFT LE'S INTO BED. PATIENT ENDED SESSION SUPINE IN BED WITH HOB ELEVATED AND BED ALARM ACTIVATED. CHANO OVIEDO
[2019-07-03 12:00] VITALS: BP 116/40
--- NOTE | 2019-07-03 14:41 | NUR ---
DR. ZAPIEN'S OFFICE NOTIFIED OF CONSULT.
--- NOTE | 2019-07-03 15:50 | NUR ---
PHYSICAL THERAPY CO-SIGN I approve of the Physical Therapy notes written above. TIANA SAVAGE PT,DPT
[2019-07-03 16:00] VITALS: BP 119/60
[2019-07-03 20:00] VITALS: BP 151/61
--- NOTE | 2019-07-03 20:43 | NUR ---
PT C/O HIP PAIN RATING IT A 9/10 ON THE PAIN SCALE. MEDICATED WITH PERCOCET. WILL REASSESS. WILL MONITOR.
--- NOTE | 2019-07-03 21:35 | NUR ---
PT STATES PAIN MED WAS EFFECTIVE RATING IT A 5/10 ON THE PAIN SCALE.
[2019-07-04] VITALS: BP 149/57
--- NOTE | 2019-07-04 07:14 | NUR ---
Was notified this morning from [facility] that patient was thought to be shelter but the has not completed the process yet. Patient is not shelter and requires PT/OT precert to return.
[2019-07-04 08:00] VITALS: BP 114/62
--- NOTE | 2019-07-04 09:00 | NUR ---
HOSPICE PATIENT CARE SECRETARY reached out to patient to discuss discharge plans for the patient. HOSPICE PATIENT CARE SECRETARY was unable to reach him and no voicemail was avialable. HOSPICE PATIENT CARE SECRETARY reached out daughter Ayse. She stated she is unsure of the discharge plan. She provided an addtional number for the patients [phone]. The number rang straight to voicemail. Voicemail was left for return call. -DAMIEN Murphy
--- NOTE | 2019-07-04 11:25 | NUR ---
PHYSICAL THERAPY Patient was approached several times this am for therapy treatment and was receiving patient care 1st attempt, being seen by Dr. Nunes on 2nd attempt and consult with Air Marshal, ( several family members also present) upon 3rd attempt. Will continue per POC this pm as able. Randy Troy, EXECUTIVE ACCOUNT MANAGER
--- NOTE | 2019-07-04 11:30 | NUR ---
OT NOTE Attempted to see pt this A.M. for OT session and upon arrival pt, family, and doctor consulting. Will check back at a later time/date and continue with POC as able. ALFREDO Carty/Polina
--- NOTE | 2019-07-04 11:47 | NUR ---
DAMIEN received notice from [facility]. Their Instrument Mechanic Weapons System will be reaching out to the family to make them aware they need the proper documentation before the patient can return to their facility. Will continue to follow. -DAMIEN Murphy
[2019-07-04 12:00] VITALS: BP 114/64
--- NOTE | 2019-07-04 12:04 | NUR ---
CM called to patient's room. Patient and who is at the bedside state they "[place] Dr. Ni can be her doctor as there is not a physician that sees her at [facility]." Discussed [facility] and they are agreeable. bending shed worker/corporate event planner notified.
--- NOTE | 2019-07-04 12:19 | NUR ---
WELL PULLER HEAD recieved notice of the patient wanting to be referred to [facility]. Due to the patients insurance the patient will likely be out of Network but will still have Consuelo at [facility] check the insurance for Out of Network benefits. There will more than likely be an issue with the patient being out of SNF days and will have a copay rate of approximatley $170 a day. The patient has already started the process for [place] Medicaid, which would need to be converted to [place] Medicaid upon completion. DAMIEN informed the patient and patient of this. He stated that he would try and get the proper documents needed for the patient to return to [facility]. WELL PULLER HEAD informed [facility] of the situation and faxed over demographics to [facility]. -DAMIEN Murphy
--- NOTE | 2019-07-04 13:54 | NUR ---
OT NOTE Attempted to see pt this P.M. for OT session and upon arrival pt was on a breathing treatment. Will check back at a later time/date and continue with POC as able. ALFREDO Carty/Polina
--- NOTE | 2019-07-04 14:01 | NUR ---
PHYSICAL THERAPY Patient was supine in bed this pm with her daughter present upon therapist arrival and had just started a breathing treatment. Will continue per POC as able at a later time. Randy Troy, PIPE BOWLS PAINT TRIMMER
--- NOTE | 2019-07-04 15:14 | NUR ---
DAMIEN received notice from [facility]. The patient had out of network benefits, however the patient would be responsible for 30% co insurance payment. Out of network benefits only cover 70%. DIRECTOR OF MARKETING ANALYTICS will notify the patient and spouse. -DAMIEN Murphy
--- NOTE | 2019-07-04 15:38 | NUR ---
Nutritional Support Services: Pt is currently on a soft diet and tolerating well. Recommend Glucerna TID to promote wound healing and to help keep BG levels WNL.
[2019-07-04 17:08] VITALS: BP 139/67
[2019-07-04 20:00] VITALS: BP 122/71
[2019-07-05] VITALS: BP 106/52
--- NOTE | 2019-07-05 03:14 | NUR ---
PATIENT SLEEPING, NO SIGNS OF DISTRESS. RESPIRATIONS EASY, NON LABORED. BED IN LOWEST POSTIION, CALL LIGHT WITHIN REACH. BED ALARM ON. WILL CONTINUE TO MONITOR.
--- NOTE | 2019-07-05 03:51 | NUR ---
24 HR chart check completed.
--- NOTE | 2019-07-05 06:26 | NUR ---
NOTIFED DR. PATTON THAT PATIENT IS HAVING TROUBLE BREATHING. VERY MOIST WITH CRACKLES/WHEEZES. PATIENT IS 96% ON 3L. HAS HX OF CHF AND HER LASIX HAS BEEN ON HOLD SINCE THE . STAT CHEST XRAY ORDERED. WILL CONTINUE TO MONITOR.
--- NOTE | 2019-07-05 07:49 | NUR ---
WINCHMAN/CRANE OPERATOR faxing updates to [facility] -DAMIEN Murphy
[2019-07-05 08:00] VITALS: BP 128/88
--- NOTE | 2019-07-05 09:00 | NUR ---
Machine Puller in to see patient. Spoke to patient and her . wants patient to have her hip surgery and is waiting for Dr. Basilio to tell him where she should be sent to as the surgery is not able to be done here. Patient is still thinking about whether or not she wants to have the surgery. Explained Dr. Basilio is not back until Monday and he verbalized an understanding. Hospitalist nurse director notified.
--- NOTE | 2019-07-05 10:43 | NUR ---
OT NOTE PATIENT SEEN 1:1 OT THIS DATE. PATIENT INDENTIFIED BY NAME AND DATE OF . PATIENT COMPLETED 15 MINUTES OF OT THIS DATE. PATIENT COMPLETED GROOMING TASK SEATED EOB WASHING FACE MIN A WITH FAIR TOLERANCE SITTING EOB THIS DATE FOR INCREASE TRUNK CONTROL FOR INCREASE INDEPENDENCE WITH FUNCTIONAL TRANSFER TASKS. COMPLETED SUPINE TO SIT AND SIT TO SUPINE MOD A USE RAIL CONTINUE TOWARDS PLAN OF CARE. BED ALARM SET END OF SESSION THIS DATE. JESICA FUENTES/Polina
[2019-07-05 12:00] VITALS: BP 109/46
[2019-07-05 12:19] LABS: BUN 22 mg/dl (7-24); CHLORIDE 101 mmol/L (98-107); CREATININE 1.09 mg/dL (0.55-1.02); POTASSIUM 5.3 mmol/L (3.5-5.1); SODIUM 135 mmol/L (136-145)
--- NOTE | 2019-07-05 13:17 | NUR ---
PHYSICAL THERAPY CO-SIGN I approve of the Physical Therapy notes written above. TIANA SAVAGE PT,DPT
[2019-07-05 16:00] VITALS: BP 132/53
--- NOTE | 2019-07-05 17:33 | NUR ---
REPORT GIVEN TO [facility]
--- NOTE | 2019-07-05 18:13 | NUR ---
PATIENT PICKED UP BY [facility] AT THIS TIME TO BE TRANSPORTED TO [facility]. REPORT GIVEN TO RECEIVING ICU NURSE LIANET. MULTILUMEN IJ REMAINS INTACT. PACKET SENT ALONG WITH AMBULANCE. PATIENT REFUSED WOUND PHOTOS AT TIME OF DISCHARGE.
--- NOTE | 2019-07-08 12:24 | NUR ---
OCCUPATIONAL THERAPY CO-SIGN I approve of the Occupational Therapy notes written above. RICKY HOLLAND OTR/Polina
== END 2019-07-05 18:13 | disposition short-term general hospital (02) | DRG 377 ==
LOC: ED 16:43 → 5E 19:46 → ICCU 19:46 → EDHOLD 19:46 → ICCU 20:14 → 5E 07-02 14:17
PROVIDERS: Emergency Medicine; Internal Medicine; Student in an Organized Health Care Education/Training Program; ADMIT Internal Medicine
PROC: 30233N1 Transfusion of Nonautologous Red Blood Cells into Peripheral Vein, Percutaneous Approach (ICD-10-PCS; principal; 2019-06-30)
PROC: B54NZZA Ultrasonography of Left Upper Extremity Veins, Guidance (ICD-10-PCS; 2019-06-30)
PROC: 05HY33Z Insertion of Infusion Device into Upper Vein, Percutaneous Approach (ICD-10-PCS; 2019-06-30)
PROC: 0DB68ZX Excision of Stomach, Via Natural or Artificial Opening Endoscopic, Diagnostic (ICD-10-PCS; 2019-07-01)
DX: K29.71 Gastritis, unspecified, with bleeding (principal); N17.0 Acute kidney failure with tubular necrosis; E43 Unspecified severe protein-calorie malnutrition; I50.43 Acute on chronic combined systolic (congestive) and diastolic (congestive) heart failure; A04.72 Enterocolitis due to Clostridium difficile, not specified as recurrent; E87.2 Acidosis; R65.10 Systemic inflammatory response syndrome (SIRS) of non-infectious origin without acute organ dysfunction; D68.59 Other primary thrombophilia; D68.9 Coagulation defect, unspecified; K50.90 Crohn's disease, unspecified, without complications; I11.0 Hypertensive heart disease with heart failure; E11.51 Type 2 diabetes mellitus with diabetic peripheral angiopathy without gangrene; D50.0 Iron deficiency anemia secondary to blood loss (chronic); I73.9 Peripheral vascular disease, unspecified; F32.9 Major depressive disorder, single episode, unspecified; I25.118 Atherosclerotic heart disease of native coronary artery with other forms of angina pectoris; Z87.81 Personal history of (healed) traumatic fracture; K21.9 Gastro-esophageal reflux disease without esophagitis; F17.210 Nicotine dependence, cigarettes, uncomplicated; Z90.49 Acquired absence of other specified parts of digestive tract; Z90.710 Acquired absence of both cervix and uterus; Z83.3 Family history of diabetes mellitus; Z82.3 Family history of stroke; Z80.8 Family history of malignant neoplasm of other organs or systems; I25.2 Old myocardial infarction; Z79.4 Long term (current) use of insulin; Z79.82 Long term (current) use of aspirin; Z86.718 Personal history of other venous thrombosis and embolism; Z71.6 Tobacco abuse counseling; Z87.440 Personal history of urinary (tract) infections

== ENCOUNTER 2019-08-04 10:44 | Inpatient (IN) | payer OTHER ==
[~2019-08-04] VITALS: Ht 152.4 cm; Wt 84.1 kg
[~2019-08-04 10:44] MED LIST changes: +ALBUTEROL2.5 MG/0.5 INH; +BRILINTA90 M1 PO; +CITALOPRAM HYDR40 MG PO; +DEXTROMETHORPHAN PO; +FLUTICASONE P15.8 ML INH; +GABAPENTIN100 M2 PO; +GUAIFENESIN PO; +IMODIUM A-D2 M2 PO; +INSULIN LI100 UNIT/1 SC; +MAALOX ADVANCE355 M1 PO; +MUSCLE RUB CRE113 GM T; +PERCOCET 5-3251 EACH PO; +SUPER MULTIVIT1 EACH PO; +VITAMIN A & D113 GM T
[2019-08-04 11:19] LABS: BASO % 0.3 % (0.0-1.0); EOS % 0.2 % (1.0-4.0); HEMATOCRIT 30.4 % (37.0-47.0); HEMOGLOBIN 9.3 g/dl (12.0-16.0); LYMPH % 16.5 % (27.0-41.0); MEAN CELL VOLUME 95.9 fl (81.0-99.0); MEAN CORPUSCULAR HGB 29.3 pg (27.0-31.0); MEAN CORPUSCULAR HGB CONC 30.6 g/dl (33.0-37.0); MEAN PLATELET VOLUME 10.6 fl (9.6-12.3); MONO # 0.8 10*3/uL (0.1-1.0); MONO % 6.9 % (3.0-9.0); NEUT % 75.3 % (47.0-73.0); PLATELET COUNT AUTOMATED 168 10*3/uL (130-400); RED BLOOD COUNT 3.17 10*6/uL (4.10-5.10); RED CELL DISTRI WIDTH 14.6 % (0-14.5); WHITE BLOOD COUNT 11.9 10*3/uL (4.8-10.8)
[2019-08-04 11:30] LABS: ACT PARTIAL THROMBO TIME 24.8 SECONDS (20.0-32.1); INTERNATIONAL NORM RATIO 1.1 (2.0-3.5)
[2019-08-04 11:36] LABS: ALBUMIN 2.9 gm/dl (3.1-4.5); CREATININE 8.72 mg/dL (0.55-1.02); POTASSIUM 5.3 mmol/L (3.5-5.1); TOTAL PROTEIN 7.3 gm/dL (6.4-8.2); TROPONIN I 0.045 ng/ml (<0.045)
[2019-08-04 11:40] VITALS: BP 115/37
--- NOTE | 2019-08-04 11:46 | NUR ---
DR VELEZ AWARE OF CRITICAL LACTIC ACID OF 9.6.
[2019-08-04 13:05] VITALS: BP 115/57
--- NOTE | 2019-08-04 13:05 | NUR ---
A 68, admitted to ICCU, under the services of JASON Sheikh DO with a diagnosis of CATHERINE,SYNCOPE WITH COLLAPSE. Chief complaint is SYNCOPAL EPISODE. Patient arrived via stretcher from ER. Monitor applied. Initial assessment completed. Vital signs taken and recorded. JASON SHEIKH DO notified of admission to the unit. Orders received. See assessment for past medical history, medications and allergies. Patient and/or family oriented to unit. [facility] ICCU visitation policy reviewed. Clothing/patient valuable form completed. LEELEE GARCIA
[2019-08-04 13:20] LABS: BILIRUBIN NEGATIVE (NEGATIVE); BLOOD 2+ (NEGATIVE); CLARITY CLOUDY (CLEAR); COLOR YELLOW (YELLOW); GLUCOSE NEGATIVE (NEGATIVE); KETONE NEGATIVE (NEGATIVE); LEUKO ESTERASE 3+ (NEGATIVE); NITRITE NEGATIVE (NEGATIVE); SPECIFIC GRAVITY 1.025 (1.005-1.030); UROBILINOGEN 0.2 E.U./dl (0.2-1.0)
--- NOTE | 2019-08-04 13:30 | NUR ---
PT HAD A SEIZURE AND BECAME BRADYCARDIC AT 29 WHILE LYING FLAT GETTING READY FOR DR RAINEY TO PLACE A CENTRAL LINE. SEIZURE LIKE ACTIVITY LASTED FOR 1 MINUTE. PT THEN BECAME POSTICTAL. PT'S VITAL SIGNS STABALIZED WITHOUT INTERVENTION. PT DID HAVE A SMALL EMESIS OF GREEN FLUID.
[2019-08-04 13:43] LABS: YEAST 4+
[2019-08-04 13:44] LABS: RBC 21-30 rbc/hpf (0-2); WBC 41-50 wbc/hpf (0-5)
[2019-08-04 13:45] LABS: BACTERIA 1+
[2019-08-04] MEDS ORDERED: KLOR-CON M2020 ME1 PO (13:56)
[2019-08-04] MEDS ORDERED: HYDROXYZINE PAM25 M1 PO (13:58)
[2019-08-04] MEDS ORDERED: VENT7GM INH (14:01)
[2019-08-04] MEDS ORDERED: LASIX20 MG PO (14:02)
--- NOTE | 2019-08-04 14:50 | NUR ---
DR RAINEY SPOKE WITH DR BRADLEY REGARDING PT'S CONDITION. DR BRADLEY AGREED WITH DR RAINEY THAT PT SHOULD BE TRANSFERED TO A TERTIARY FACILITY.
[2019-08-04] MEDS ORDERED: Clopidogrel75 MG PO (14:54)
[2019-08-04] MEDS ORDERED: METOPROLOL SUCC25 M2 PO (14:56)
[2019-08-04] MEDS ORDERED: BUMETANIDE2 MG PO (14:58)
[2019-08-04 14:59] LABS: BASO % 0.2 % (0.0-1.0); EOS % 0.1 % (1.0-4.0); HEMATOCRIT 29.3 % (37.0-47.0); HEMOGLOBIN 9.1 g/dl (12.0-16.0); LYMPH # 2.4 10*3/uL (1.3-4.4); LYMPH % 19.3 % (27.0-41.0); MEAN CELL VOLUME 95.8 fl (81.0-99.0); MEAN CORPUSCULAR HGB 29.7 pg (27.0-31.0); MEAN CORPUSCULAR HGB CONC 31.1 g/dl (33.0-37.0); MEAN PLATELET VOLUME 10.6 fl (9.6-12.3); MONO # 0.7 10*3/uL (0.1-1.0); MONO % 5.3 % (3.0-9.0); NEUT % 74.2 % (47.0-73.0); PLATELET COUNT AUTOMATED 194 10*3/uL (130-400); RED BLOOD COUNT 3.06 10*6/uL (4.10-5.10); RED CELL DISTRI WIDTH 14.6 % (0-14.5); WHITE BLOOD COUNT 12.2 10*3/uL (4.8-10.8)
[2019-08-04] MEDS ORDERED: GOOD NEIGHBOR150 MG PO (14:59)
[2019-08-04] MEDS ORDERED: Ipratropium Brom3 ML INH (15:01)
--- NOTE | 2019-08-04 15:04 | NUR ---
PT NOT WANTING TO TRANSFER TO ANOTHER HOSPITAL. PT'S DAUGHTER AND SPOKE WITH PT AND PT TO TRANSFER TO POSSIBLE [facility]. ARRAGNGEMENTS GERARD MADE BY DR RIVAS.
[2019-08-04 15:14] LABS: ALBUMIN 2.8 gm/dl (3.1-4.5); CREATININE 8.52 mg/dL (0.55-1.02); POTASSIUM 5.4 mmol/L (3.5-5.1); TOTAL PROTEIN 7.2 gm/dL (6.4-8.2)
[2019-08-04 15:19] LABS: TROPONIN I 0.056 ng/ml (<0.045)
--- NOTE | 2019-08-04 15:19 | NUR ---
DR RIVAS UPDATED ON CRITICAL LACTIC ACID LEVEL.
--- NOTE | 2019-08-04 15:19 | NUR ---
DR RIVAS UPDATED ON CRITICAL TROP. LEVEL.
[2019-08-04 16:00] VITALS: BP 119/36
--- NOTE | 2019-08-04 17:32 | NUR ---
PATIENT ASYSTOLE PER CM. RNS ENTERED ROOM AND PATIENT WAS SEIZING. IV ATIVAN GIVEN. CHEST COMPRESSIONS STARTED AND PATIENT REACHED UP AND GRABBED RNS ARMS. COMPLETE HEART BLOCK PER CM-RATE 28. 0.5MG ATROPINE GIVEN. NSR RATE 70 PER CM. [facility] CALLED TO TRANSFER TO [facility] ICU. REPORT GIVEN TO LIANA ON MEDICAL ICU.
--- NOTE | 2019-08-04 18:55 | NUR ---
PATIENT TRANSFERRED TO [facility]IA [facility]. TRANSFER PACKET GIVEN TO [facility].
--- NOTE | 2019-08-05 14:46 | NUR ---
PHYSICAL THERAPY Nursing screen received and chart reviewed. Patient discharged 08/04/19. Thank you. Kirsten Zee,PT,DPT.
--- NOTE | 2019-08-05 16:19 | NUR ---
Nursing screen received this am and patient transferred to [facility]. Bryanna Campbell OTR/l
== END 2019-08-04 19:07 | disposition short-term general hospital (02) | DRG 682 ==
LOC: ED 10:44 → EDHOLD 12:25 → ICCU 12:31
PROVIDERS: Emergency Medicine; ADMIT Internal Medicine
DX: N17.9 Acute kidney failure, unspecified (principal); I46.9 Cardiac arrest, cause unspecified; I50.42 Chronic combined systolic (congestive) and diastolic (congestive) heart failure; E87.2 Acidosis; E44.0 Moderate protein-calorie malnutrition; I44.2 Atrioventricular block, complete; E87.5 Hyperkalemia; E86.0 Dehydration; R55 Syncope and collapse; I25.10 Atherosclerotic heart disease of native coronary artery without angina pectoris; K80.80 Other cholelithiasis without obstruction; E11.9 Type 2 diabetes mellitus without complications; K21.9 Gastro-esophageal reflux disease without esophagitis; E78.5 Hyperlipidemia, unspecified; I11.0 Hypertensive heart disease with heart failure; E66.09 Other obesity due to excess calories; F32.9 Major depressive disorder, single episode, unspecified; R56.9 Unspecified convulsions; D72.828 Other elevated white blood cell count; D64.9 Anemia, unspecified; Z83.3 Family history of diabetes mellitus; Z83.79 Family history of other diseases of the digestive system; Z79.4 Long term (current) use of insulin; I25.2 Old myocardial infarction; Z79.84 Long term (current) use of oral hypoglycemic drugs; Z68.36 Body mass index [BMI] 36.0-36.9, adult; Z90.710 Acquired absence of both cervix and uterus

== ENCOUNTER 2019-10-25 14:37 | Inpatient (IN) | payer OTHER ==
[~2019-10-25] VITALS: Ht 154.9 cm; Wt 72.6 kg
[~2019-10-25 14:37] MED LIST changes: +BUMETANIDE2 MG PO; +Clopidogrel75 MG PO; +HYDROXYZINE PAM25 M1 PO; +Ipratropium Brom3 ML INH; +KLOR-CON M2020 ME1 PO; +VENT7GM INH
[2019-10-25 14:41] VITALS: BP 72/50
[2019-10-25 15:27] LABS: BASO % 0.3 % (0.0-1.0); EOS # 0.3 10*3/uL (0.0-0.4); HEMATOCRIT 29.8 % (37.0-47.0); HEMOGLOBIN 9.6 g/dl (12.0-16.0); LYMPH # 3.4 10*3/uL (1.3-4.4); LYMPH % 26.9 % (27.0-41.0); MEAN CELL VOLUME 95.8 fl (81.0-99.0); MEAN CORPUSCULAR HGB 30.9 pg (27.0-31.0); MEAN CORPUSCULAR HGB CONC 32.2 g/dl (33.0-37.0); MEAN PLATELET VOLUME 9.7 fl (9.6-12.3); MONO % 7.9 % (3.0-9.0); PLATELET COUNT AUTOMATED 233 10*3/uL (130-400); RED BLOOD COUNT 3.11 10*6/uL (4.10-5.10); RED CELL DISTRI WIDTH 13.6 % (0-14.5); WHITE BLOOD COUNT 12.8 10*3/uL (4.8-10.8)
[2019-10-25 15:37] LABS: ACT PARTIAL THROMBO TIME 21.1 SECONDS (20.0-32.1); INTERNATIONAL NORM RATIO 1.1 (2.0-3.5)
[2019-10-25 15:43] LABS: ALKALINE PHOSPHATASE 111 U/L (45-117); BUN 28 mg/dl (7-24); CHLORIDE 99 mmol/L (98-107); LIPASE 159 U/L (73-393); POTASSIUM 2.9 mmol/L (3.5-5.1); SGOT/AST 42 IU/L (3-35); SGPT/ALT 36 U/L (12-78); SODIUM 138 mmol/L (136-145); TOTAL PROTEIN 7.2 gm/dL (6.4-8.2)
[2019-10-25 15:46] LABS: TROPONIN I < 0.015 ng/ml (<0.045)
[2019-10-25 16:47] VITALS: BP 98/29
[2019-10-25 16:55] VITALS: BP 96/25
[2019-10-25] MEDS ORDERED: PROTONIX40 MG PO (18:42)
[2019-10-25 20:00] VITALS: BP 101/43
[2019-10-26] VITALS: BP 90/56
[2019-10-26 07:48] VITALS: BP 90/50
[2019-10-26 10:11] LABS: BASO % 0.1 % (0.0-1.0); EOS # 0.2 10*3/uL (0.0-0.4); HEMATOCRIT 25.4 % (37.0-47.0); HEMOGLOBIN 8.1 g/dl (12.0-16.0); LYMPH # 2.3 10*3/uL (1.3-4.4); LYMPH % 21.5 % (27.0-41.0); MEAN CELL VOLUME 95.1 fl (81.0-99.0); MEAN CORPUSCULAR HGB 30.3 pg (27.0-31.0); MEAN CORPUSCULAR HGB CONC 31.9 g/dl (33.0-37.0); MONO # 0.7 10*3/uL (0.1-1.0); MONO % 6.5 % (3.0-9.0); NEUT # 7.5 10*3/uL (2.3-7.9); NEUT % 69.4 % (47.0-73.0); PLATELET COUNT AUTOMATED 154 10*3/uL (130-400); RED BLOOD COUNT 2.67 10*6/uL (4.10-5.10); RED CELL DISTRI WIDTH 13.7 % (0-14.5); WHITE BLOOD COUNT 10.8 10*3/uL (4.8-10.8)
[2019-10-26 10:33] LABS: CREATININE 2.22 mg/dL (0.55-1.02)
[2019-10-26 12:00] VITALS: BP 92/50
[2019-10-26 16:00] VITALS: BP 101/53
[2019-10-26 20:00] VITALS: BP 100/48
[2019-10-27] VITALS: BP 131/39
[2019-10-27 07:00] LABS: CREATININE 1.71 mg/dL (0.55-1.02)
[2019-10-27 07:15] LABS: POTASSIUM 4.6 mmol/L (3.5-5.1)
[2019-10-27 08:00] VITALS: BP 108/58
[2019-10-27 08:28] LABS: BASO % 0.3 % (0.0-1.0); EOS # 0.2 10*3/uL (0.0-0.4); EOS % 3.4 % (1.0-4.0); HEMATOCRIT 24.5 % (37.0-47.0); HEMOGLOBIN 7.9 g/dl (12.0-16.0); LYMPH # 1.9 10*3/uL (1.3-4.4); LYMPH % 27.7 % (27.0-41.0); MEAN CELL VOLUME 95.3 fl (81.0-99.0); MEAN CORPUSCULAR HGB 30.7 pg (27.0-31.0); MEAN CORPUSCULAR HGB CONC 32.2 g/dl (33.0-37.0); MEAN PLATELET VOLUME 10.5 fl (9.6-12.3); MONO # 0.8 10*3/uL (0.1-1.0); MONO % 11.6 % (3.0-9.0); NEUT # 3.9 10*3/uL (2.3-7.9); NEUT % 56.3 % (47.0-73.0); NUCLEATED RED BLOOD CELL 0.3 % (0.0-0.0); PLATELET COUNT AUTOMATED 142 10*3/uL (130-400); RED BLOOD COUNT 2.57 10*6/uL (4.10-5.10); RED CELL DISTRI WIDTH 13.7 % (0-14.5)
[2019-10-27 12:00] VITALS: BP 141/59
[2019-10-27 16:00] VITALS: BP 112/44
[2019-10-27 20:00] VITALS: BP 149/48
[2019-10-28] VITALS (7 sets, daily range): BP systolic 71–135; BP diastolic 34–75
[2019-10-28 07:09] LABS: BASO % 0.3 % (0.0-1.0); EOS # 0.3 10*3/uL (0.0-0.4); EOS % 3.8 % (1.0-4.0); HEMATOCRIT 25.8 % (37.0-47.0); HEMOGLOBIN 8.2 g/dl (12.0-16.0); LYMPH # 2.3 10*3/uL (1.3-4.4); LYMPH % 29.7 % (27.0-41.0); MEAN CELL VOLUME 96.3 fl (81.0-99.0); MEAN CORPUSCULAR HGB 30.6 pg (27.0-31.0); MEAN CORPUSCULAR HGB CONC 31.8 g/dl (33.0-37.0); MEAN PLATELET VOLUME 10.2 fl (9.6-12.3); MONO # 0.7 10*3/uL (0.1-1.0); MONO % 9.2 % (3.0-9.0); NEUT # 4.3 10*3/uL (2.3-7.9); NEUT % 56.1 % (47.0-73.0); PLATELET COUNT AUTOMATED 146 10*3/uL (130-400); RED BLOOD COUNT 2.68 10*6/uL (4.10-5.10); WHITE BLOOD COUNT 7.6 10*3/uL (4.8-10.8)
[2019-10-28 07:10] LABS: POTASSIUM 4.2 mmol/L (3.5-5.1)
[2019-10-28 07:12] LABS: CREATININE 1.39 mg/dL (0.55-1.02)
[2019-10-29] VITALS: BP 131/45
[2019-10-29 08:00] VITALS: BP 124/56; BP 134/52
[2019-10-29 08:13] LABS: BASO % 0.4 % (0.0-1.0); EOS # 0.3 10*3/uL (0.0-0.4); EOS % 4.4 % (1.0-4.0); HEMATOCRIT 26.6 % (37.0-47.0); HEMOGLOBIN 8.2 g/dl (12.0-16.0); LYMPH # 1.5 10*3/uL (1.3-4.4); LYMPH % 19.4 % (27.0-41.0); MEAN CORPUSCULAR HGB 30.5 pg (27.0-31.0); MEAN CORPUSCULAR HGB CONC 30.8 g/dl (33.0-37.0); MEAN PLATELET VOLUME 10.1 fl (9.6-12.3); MONO # 0.6 10*3/uL (0.1-1.0); MONO % 7.3 % (3.0-9.0); NEUT # 5.2 10*3/uL (2.3-7.9); PLATELET COUNT AUTOMATED 159 10*3/uL (130-400); RED BLOOD COUNT 2.69 10*6/uL (4.10-5.10); RED CELL DISTRI WIDTH 14.6 % (0-14.5); WHITE BLOOD COUNT 7.6 10*3/uL (4.8-10.8)
[2019-10-29 08:14] LABS: CREATININE 1.41 mg/dL (0.55-1.02); POTASSIUM 4.8 mmol/L (3.5-5.1)
[2019-10-29 08:17] LABS: MEAN CELL VOLUME 98.9 fl (81.0-99.0)
[2019-10-29] MEDS ORDERED: FAMOTIDINE20 M1 PO (09:22)
[2019-10-29] MEDS ORDERED: Diabeta,Micron2.5 MG PO (09:22)
[2019-10-29 12:00] VITALS: BP 135/64
== END 2019-10-29 14:22 | disposition home or self-care (01) | DRG 871 ==
LOC: ED 14:37 → EDHOLD 16:27 → 4E 16:27
PROVIDERS: Emergency Medicine; Internal Medicine; ADMIT Family Medicine
DX: A41.9 Sepsis, unspecified organism (principal); N17.0 Acute kidney failure with tubular necrosis; K50.10 Crohn's disease of large intestine without complications; I50.40 Unspecified combined systolic (congestive) and diastolic (congestive) heart failure; K52.1 Toxic gastroenteritis and colitis; E44.0 Moderate protein-calorie malnutrition; R65.20 Severe sepsis without septic shock; E86.0 Dehydration; K57.30 Diverticulosis of large intestine without perforation or abscess without bleeding; D12.3 Benign neoplasm of transverse colon; T38.3X5A Adverse effect of insulin and oral hypoglycemic [antidiabetic] drugs, initial encounter; I25.10 Atherosclerotic heart disease of native coronary artery without angina pectoris; F32.9 Major depressive disorder, single episode, unspecified; K21.9 Gastro-esophageal reflux disease without esophagitis; I11.0 Hypertensive heart disease with heart failure; E87.6 Hypokalemia; E78.5 Hyperlipidemia, unspecified; E66.9 Obesity, unspecified; E11.9 Type 2 diabetes mellitus without complications; R79.82 Elevated C-reactive protein (CRP); Z90.710 Acquired absence of both cervix and uterus; I25.2 Old myocardial infarction; Y92.89 Other specified places as the place of occurrence of the external cause; Z95.5 Presence of coronary angioplasty implant and graft; Z83.3 Family history of diabetes mellitus; Z80.9 Family history of malignant neoplasm, unspecified; Z83.79 Family history of other diseases of the digestive system; Z79.899 Other long term (current) drug therapy; Z79.82 Long term (current) use of aspirin; Z79.4 Long term (current) use of insulin; Z68.30 Body mass index [BMI] 30.0-30.9, adult

== ENCOUNTER 2019-11-27 20:21 | Emergency (ER) | payer OTHER ==
[~2019-11-27] VITALS: Ht 157.4 cm; Wt 76.7 kg
[~2019-11-27 20:21] MED LIST changes: +Diabeta,Micron2.5 MG PO; +FAMOTIDINE20 M1 PO; +PROTONIX40 MG PO
[2019-11-27] MEDS ORDERED: NYSTATIN OINTME30 GM T (21:04)
== END 2019-11-27 21:25 | disposition home or self-care (01) ==
LOC: ED 20:21
DX: L30.9 Dermatitis, unspecified (principal); R19.7 Diarrhea, unspecified; E11.9 Type 2 diabetes mellitus without complications; I25.2 Old myocardial infarction; E78.00 Pure hypercholesterolemia, unspecified; K21.9 Gastro-esophageal reflux disease without esophagitis; Z79.82 Long term (current) use of aspirin; Z79.899 Other long term (current) drug therapy; Z79.4 Long term (current) use of insulin; Z98.61 Coronary angioplasty status; Z90.710 Acquired absence of both cervix and uterus; Z87.891 Personal history of nicotine dependence

== ENCOUNTER 2019-12-14 23:19 | Inpatient (IN) | payer OTHER ==
[~2019-12-14] VITALS: Ht 157.5 cm; Wt 83.2 kg
[~2019-12-14 23:19] MED LIST changes: +NYSTATIN OINTME30 GM T
[2019-12-14 23:57] LABS: BASO % 0.4 % (0.0-1.0); EOS # 0.3 10*3/uL (0.0-0.4); EOS % 2.5 % (1.0-4.0); HEMATOCRIT 31.7 % (37.0-47.0); HEMOGLOBIN 9.7 g/dl (12.0-16.0); LYMPH # 2.8 10*3/uL (1.3-4.4); LYMPH % 26.6 % (27.0-41.0); MEAN CELL VOLUME 98.4 fl (81.0-99.0); MEAN CORPUSCULAR HGB 30.1 pg (27.0-31.0); MEAN CORPUSCULAR HGB CONC 30.6 g/dl (33.0-37.0); MEAN PLATELET VOLUME 9.8 fl (9.6-12.3); MONO # 0.6 10*3/uL (0.1-1.0); MONO % 6.1 % (3.0-9.0); NEUT # 6.7 10*3/uL (2.3-7.9); NEUT % 63.6 % (47.0-73.0); PLATELET COUNT AUTOMATED 238 10*3/uL (130-400); RED BLOOD COUNT 3.22 10*6/uL (4.10-5.10); WHITE BLOOD COUNT 10.5 10*3/uL (4.8-10.8)
[2019-12-15 00:07] LABS: ACT PARTIAL THROMBO TIME 24.1 SECONDS (20.0-32.1)
[2019-12-15 00:14] LABS: ALBUMIN 2.7 gm/dl (3.1-4.5); ALKALINE PHOSPHATASE 145 U/L (45-117); BUN 28 mg/dl (7-24); CHLORIDE 95 mmol/L (98-107); CREATININE 2.42 mg/dL (0.55-1.02); POTASSIUM 3.7 mmol/L (3.5-5.1); SGOT/AST 28 IU/L (3-35); SGPT/ALT 24 U/L (12-78); SODIUM 135 mmol/L (136-145); TOTAL PROTEIN 6.9 gm/dL (6.4-8.2)
[2019-12-15 00:16] LABS: TROPONIN I < 0.015 ng/ml (<0.045)
[2019-12-15 02:15] LABS: THYROID STIM HORMONE (HS) 3.14 uIU/ml (0.358-4.75)
[2019-12-15 04:20] VITALS: BP 92/50; BP 92/52
[2019-12-15] MEDS ORDERED: JANUVIA100 MG PO (05:33)
[2019-12-15] MEDS ORDERED: BUMETANIDE1 MG PO (05:34)
[2019-12-15 06:00] LABS: BASO % 0.2 % (0.0-1.0); EOS # 0.1 10*3/uL (0.0-0.4); EOS % 0.9 % (1.0-4.0); HEMATOCRIT 30.3 % (37.0-47.0); HEMOGLOBIN 9.3 g/dl (12.0-16.0); LYMPH # 1.6 10*3/uL (1.3-4.4); LYMPH % 12.7 % (27.0-41.0); MEAN CELL VOLUME 97.4 fl (81.0-99.0); MEAN CORPUSCULAR HGB 29.9 pg (27.0-31.0); MEAN CORPUSCULAR HGB CONC 30.7 g/dl (33.0-37.0); MEAN PLATELET VOLUME 9.6 fl (9.6-12.3); MONO # 0.9 10*3/uL (0.1-1.0); MONO % 6.7 % (3.0-9.0); NEUT # 10.1 10*3/uL (2.3-7.9); PLATELET COUNT AUTOMATED 204 10*3/uL (130-400); RED BLOOD COUNT 3.11 10*6/uL (4.10-5.10); RED CELL DISTRI WIDTH 13.2 % (0-14.5); WHITE BLOOD COUNT 12.8 10*3/uL (4.8-10.8)
[2019-12-15 06:10] LABS: BUN 28 mg/dl (7-24); CHLORIDE 99 mmol/L (98-107); LIPASE 295 U/L (73-393); POTASSIUM 3.9 mmol/L (3.5-5.1); SODIUM 134 mmol/L (136-145)
[2019-12-15 06:13] LABS: HDL CHOLESTEROL 39 mg/dl (40-60); PHOSPHOROUS 3.7 mg/dL (2.5-4.9); TRIGLYCERIDES 293 mg/dl (<150); VLDL CHOLESTEROL 59 mg/dL (6-40)
[2019-12-15 06:29] LABS: CHOLESTEROL 88 mg/dL (<200)
[2019-12-15 07:11] LABS: VITAMIN D, 25-HYDROXY 30.4 ng/mL (30-100)
[2019-12-15 08:00] VITALS: BP 92/38
[2019-12-15 15:11] LABS: BILIRUBIN NEGATIVE (NEGATIVE); BLOOD NEGATIVE (NEGATIVE); CLARITY CLEAR (CLEAR); COLOR YELLOW (YELLOW); GLUCOSE NEGATIVE (NEGATIVE); KETONE NEGATIVE (NEGATIVE); LEUKO ESTERASE NEGATIVE (NEGATIVE); NITRITE NEGATIVE (NEGATIVE); SPECIFIC GRAVITY 1.005 (1.005-1.030); UROBILINOGEN 0.2 E.U./dl (0.2-1.0)
[2019-12-15 15:21] LABS: BACTERIA TRACE; EPITHELIAL CELLS 0-2; RBC 0-2 rbc/hpf (0-2); WBC 0-2 wbc/hpf (0-5)
[2019-12-15 16:00] VITALS: BP 132/38
[2019-12-15 20:00] VITALS: BP 136/52
[2019-12-16] VITALS (8 sets, daily range): BP systolic 116–143; BP diastolic 44–80
[2019-12-16 06:44] LABS: BASO % 0.4 % (0.0-1.0); EOS # 0.2 10*3/uL (0.0-0.4); EOS % 2.1 % (1.0-4.0); HEMATOCRIT 28.7 % (37.0-47.0); HEMOGLOBIN 8.9 g/dl (12.0-16.0); LYMPH # 2.2 10*3/uL (1.3-4.4); LYMPH % 19.3 % (27.0-41.0); MEAN CELL VOLUME 99.3 fl (81.0-99.0); MEAN CORPUSCULAR HGB 30.8 pg (27.0-31.0); MEAN PLATELET VOLUME 9.6 fl (9.6-12.3); MONO # 0.7 10*3/uL (0.1-1.0); MONO % 5.9 % (3.0-9.0); NEUT % 71.5 % (47.0-73.0); PLATELET COUNT AUTOMATED 177 10*3/uL (130-400); RED BLOOD COUNT 2.89 10*6/uL (4.10-5.10); RED CELL DISTRI WIDTH 13.1 % (0-14.5); WHITE BLOOD COUNT 11.2 10*3/uL (4.8-10.8)
[2019-12-16 07:23] LABS: ALBUMIN 2.5 gm/dl (3.1-4.5); POTASSIUM 3.8 mmol/L (3.5-5.1)
[2019-12-16 07:28] LABS: CREATININE 1.87 mg/dL (0.55-1.02); TOTAL PROTEIN 6.6 gm/dL (6.4-8.2)
[2019-12-17] VITALS: BP 101/59
[2019-12-17 07:17] LABS: CREATININE 1.42 mg/dL (0.55-1.02); POTASSIUM 4.6 mmol/L (3.5-5.1)
[2019-12-17 08:00] VITALS: BP 140/52
[2019-12-17 09:58] LABS: BASO % 0.2 % (0.0-1.0); EOS # 0.3 10*3/uL (0.0-0.4); EOS % 2.3 % (1.0-4.0); HEMATOCRIT 27.2 % (37.0-47.0); HEMOGLOBIN 8.4 g/dl (12.0-16.0); LYMPH # 2.4 10*3/uL (1.3-4.4); LYMPH % 18.8 % (27.0-41.0); MEAN CELL VOLUME 98.2 fl (81.0-99.0); MEAN CORPUSCULAR HGB 30.3 pg (27.0-31.0); MEAN CORPUSCULAR HGB CONC 30.9 g/dl (33.0-37.0); MEAN PLATELET VOLUME 9.8 fl (9.6-12.3); MONO # 0.8 10*3/uL (0.1-1.0); MONO % 5.8 % (3.0-9.0); NEUT # 9.4 10*3/uL (2.3-7.9); NEUT % 72.3 % (47.0-73.0); PLATELET COUNT AUTOMATED 184 10*3/uL (130-400); RED BLOOD COUNT 2.77 10*6/uL (4.10-5.10)
[2019-12-17 12:00] VITALS: BP 141/46
[2019-12-17 20:00] VITALS: BP 148/55
[2019-12-18] VITALS: BP 112/43
[2019-12-18 06:27] LABS: BASO % 0.3 % (0.0-1.0); EOS # 0.3 10*3/uL (0.0-0.4); EOS % 3.2 % (1.0-4.0); HEMATOCRIT 25.8 % (37.0-47.0); HEMOGLOBIN 7.9 g/dl (12.0-16.0); LYMPH # 1.9 10*3/uL (1.3-4.4); MEAN CELL VOLUME 99.6 fl (81.0-99.0); MEAN CORPUSCULAR HGB 30.5 pg (27.0-31.0); MEAN CORPUSCULAR HGB CONC 30.6 g/dl (33.0-37.0); MONO # 0.7 10*3/uL (0.1-1.0); MONO % 7.7 % (3.0-9.0); NEUT # 5.8 10*3/uL (2.3-7.9); NEUT % 65.9 % (47.0-73.0); PLATELET COUNT AUTOMATED 178 10*3/uL (130-400); RED BLOOD COUNT 2.59 10*6/uL (4.10-5.10); RED CELL DISTRI WIDTH 13.3 % (0-14.5); WHITE BLOOD COUNT 8.8 10*3/uL (4.8-10.8)
[2019-12-18 07:03] LABS: POTASSIUM 4.7 mmol/L (3.5-5.1)
[2019-12-18 07:11] LABS: ALBUMIN 2.3 gm/dl (3.1-4.5); CREATININE 1.25 mg/dL (0.55-1.02); TOTAL PROTEIN 6.2 gm/dL (6.4-8.2)
[2019-12-18 07:30] VITALS: BP 104/42
[2019-12-18 09:36] VITALS: BP 98/42
[2019-12-18 12:15] VITALS: BP 128/44
[2019-12-18 16:00] VITALS: BP 128/35
[2019-12-18 20:00] VITALS: BP 130/50
[2019-12-19] VITALS: BP 134/50
[2019-12-19 06:07] LABS: CREATININE 1.22 mg/dL (0.55-1.02); POTASSIUM 4.5 mmol/L (3.5-5.1)
[2019-12-19 06:17] LABS: BASO % 0.2 % (0.0-1.0); EOS # 0.2 10*3/uL (0.0-0.4); EOS % 2.6 % (1.0-4.0); HEMATOCRIT 25.8 % (37.0-47.0); HEMOGLOBIN 7.8 g/dl (12.0-16.0); LYMPH # 1.5 10*3/uL (1.3-4.4); LYMPH % 16.7 % (27.0-41.0); MEAN CELL VOLUME 98.9 fl (81.0-99.0); MEAN CORPUSCULAR HGB 29.9 pg (27.0-31.0); MEAN CORPUSCULAR HGB CONC 30.2 g/dl (33.0-37.0); MEAN PLATELET VOLUME 10.5 fl (9.6-12.3); MONO # 0.7 10*3/uL (0.1-1.0); MONO % 7.5 % (3.0-9.0); NEUT # 6.6 10*3/uL (2.3-7.9); PLATELET COUNT AUTOMATED 203 10*3/uL (130-400); RED BLOOD COUNT 2.61 10*6/uL (4.10-5.10); RED CELL DISTRI WIDTH 13.2 % (0-14.5); WHITE BLOOD COUNT 9.1 10*3/uL (4.8-10.8)
[2019-12-19 08:00] VITALS: BP 126/52
[2019-12-19 12:00] VITALS: BP 141/58
[2019-12-19] MEDS ORDERED: METOCLOPRAMIDE H5 M1 PO (14:02)
[2019-12-19] MEDS ORDERED: DOXYCYCLINE100 M3 PO (14:02)
[2019-12-19] MEDS ORDERED: XARELTO1 EACH PO (14:02)
[2019-12-19] MEDS ORDERED: Carafate1 GM PO (14:02)
== END 2019-12-19 17:22 | disposition home or self-care (01) | DRG 377 ==
LOC: ED 23:19 → 4E 12-15 01:57 → EDHOLD 12-15 01:57 → 4E 12-15 02:53
PROVIDERS: Emergency Medicine Emergency Medical Services; Family Medicine; Internal Medicine; ADMIT Internal Medicine
DX: K29.01 Acute gastritis with bleeding (principal); N17.0 Acute kidney failure with tubular necrosis; E43 Unspecified severe protein-calorie malnutrition; J18.9 Pneumonia, unspecified organism; G93.41 Metabolic encephalopathy; I82.411 Acute embolism and thrombosis of right femoral vein; E87.1 Hypo-osmolality and hyponatremia; K50.119 Crohn's disease of large intestine with unspecified complications; J44.0 Chronic obstructive pulmonary disease with (acute) lower respiratory infection; I50.42 Chronic combined systolic (congestive) and diastolic (congestive) heart failure; D68.59 Other primary thrombophilia; R74.8 Abnormal levels of other serum enzymes; D50.9 Iron deficiency anemia, unspecified; J40 Bronchitis, not specified as acute or chronic; F32.9 Major depressive disorder, single episode, unspecified; E78.5 Hyperlipidemia, unspecified; E11.65 Type 2 diabetes mellitus with hyperglycemia; I11.0 Hypertensive heart disease with heart failure; I25.10 Atherosclerotic heart disease of native coronary artery without angina pectoris; K21.9 Gastro-esophageal reflux disease without esophagitis; R56.9 Unspecified convulsions; E66.9 Obesity, unspecified; E11.43 Type 2 diabetes mellitus with diabetic autonomic (poly)neuropathy; K31.84 Gastroparesis; E11.51 Type 2 diabetes mellitus with diabetic peripheral angiopathy without gangrene; E11.42 Type 2 diabetes mellitus with diabetic polyneuropathy; S90.935A Unspecified superficial injury of left lesser toe(s), initial encounter; X58.XXXA Exposure to other specified factors, initial encounter; Y93.89 Activity, other specified; Y92.89 Other specified places as the place of occurrence of the external cause; Y99.8 Other external cause status; Z68.33 Body mass index [BMI] 33.0-33.9, adult; Z79.4 Long term (current) use of insulin; Z79.82 Long term (current) use of aspirin; Z79.899 Other long term (current) drug therapy; Z90.710 Acquired absence of both cervix and uterus; Z95.0 Presence of cardiac pacemaker; Z95.5 Presence of coronary angioplasty implant and graft; Z87.891 Personal history of nicotine dependence; Z82.3 Family history of stroke; Z83.3 Family history of diabetes mellitus; Z80.9 Family history of malignant neoplasm, unspecified

== ENCOUNTER 2020-01-17 10:26 | Emergency (ER) | payer OTHER ==
[~2020-01-17] VITALS: Wt 97.5 kg
[~2020-01-17 10:26] MED LIST changes: +BUMETANIDE1 MG PO; +Carafate1 GM PO; +DOXYCYCLINE100 M3 PO; +METOCLOPRAMIDE H5 M1 PO; +XARELTO1 EACH PO
[2020-01-17 11:55] LABS: ABG BASE EXCESS -10.9 mmol/L (-2.0-2.0)
[2020-01-17 11:56] LABS: ARTERIAL BLOOD GAS PH 7.176 (7.35-7.45)
[2020-01-17 11:58] LABS: HEMATOCRIT 24.7 % (37.0-47.0); MEAN CELL VOLUME 112.3 fl (81.0-99.0); MEAN CORPUSCULAR HGB 30.5 pg (27.0-31.0); MEAN CORPUSCULAR HGB CONC 27.1 g/dl (33.0-37.0); MEAN PLATELET VOLUME 10.7 fl (9.6-12.3); NUCLEATED RED BLOOD CELL 0.3 10*3/uL (0.0-0.0); NUCLEATED RED BLOOD CELL 1.6 % (0.0-0.0); PLATELET COUNT AUTOMATED 252 10*3/uL (130-400); RED CELL DISTRI WIDTH 15.2 % (0-14.5); WHITE BLOOD COUNT 15.5 10*3/uL (4.8-10.8)
[2020-01-17 12:04] LABS: HEMOGLOBIN 6.7 g/dl (12.0-16.0)
[2020-01-17 12:08] LABS: ACT PARTIAL THROMBO TIME 27.3 SECONDS (20.0-32.1); INTERNATIONAL NORM RATIO 1.5 (2.0-3.5)
[2020-01-17 12:13] LABS: ALBUMIN 2.5 gm/dl (3.1-4.5); CREATININE 5.03 mg/dL (0.55-1.02); TROPONIN I 0.043 ng/ml (<0.045)
[2020-01-17 12:17] LABS: PLATELET SUFFICIENCY NORMAL (NORMAL); POLYCHROMASIA SLIGHT; TOTAL CELLS COUNTED 100 #CELLS
[2020-01-17 12:18] LABS: ROULEAUX SLIGHT
[2020-01-17 12:22] LABS: POTASSIUM 7.8 mmol/L (3.5-5.1)
== END 2020-01-17 20:46 | disposition expired ==
LOC: ED 10:26
PROVIDERS: Nurse Practitioner Family
DX: J96.90 Respiratory failure, unspecified, unspecified whether with hypoxia or hypercapnia (principal); I46.9 Cardiac arrest, cause unspecified; E11.9 Type 2 diabetes mellitus without complications; I25.2 Old myocardial infarction; E78.00 Pure hypercholesterolemia, unspecified; Z79.899 Other long term (current) drug therapy; Z79.82 Long term (current) use of aspirin